=== PATIENT | female | born 1970 | race Caucasian/White ===

== ENCOUNTER → 2016-12-25 | Outpatient (CLI) | payer OTHER ==
[~2016-12-25] MED LIST: B-CO1CAP3; LEVO125T4 PO; MULT-506 PO; OMEG12006 PO; OXYC-57 PO; fiber PO
--- NOTE | 2016-12-25 13:23 | Discharge Instructions ---
Discharge Instructions Procedure Procedure Date: Dec 25, 2016. Reason for visit: Left Calcifications. Discharge Discharge Date: Dec 25, 2016. Discharge Diagnosis: status post breast biopsy Instructions Activity Recommendations: Additional Limitations (see below) Return to School/Work: no limitations Recommended Home Diet: No Limitations Provider Instructions: ACTIVITY RECOMMENDATIONS: * No lifting, pushing, pulling or exercising the affected side for three days. RETURN TO SCHOOL/WORK: * You may return to work/school after the procedure, but do not perform any strenuous activities for 24 to 48 hours. MEDICATIONS: * Tylenol (two 325 mg) every four to six hours if needed for mild pain (if not allergic to Tylenol). DIET: * Resume previous diet. SPECIAL CARE INSTRUCTIONS: * Keep biopsy site dry for 24 hours. May shower after 24 hours, but do not soak (bathe) incision. * May remove Tegaderm (plastic patch) tomorrow AFTER showering. * Leave the steri-strips on for one week. Allow the steri-strips to fall off by themselves. If not off after one week, you may remove them. You may place a Bandaid crosswise over the strips, if desired. * Apply ice 10 minutes on and 10 minutes off as needed. * Wear a bra at bedtime to sleep more comfortably for 2-3 days. * Your referring physician should have the results after approximately 5 to 7 business days. * Call for unusual bleeding, fever, drainage, etc or if you have any questions call during normal business hours or after hours call Dr Solis, . FOLLOW UP VISIT: Follow-up with Referring Physician as scheduled. Allergies Coded Allergies: No Known Allergies (Verified Allergy, Unknown, 12/08/05) Jazmin Domingo Recommendations: Call your doctor if: * Temperature above 101 degrees * Pain not relieved by pain medicine ordered * There is increased drainage or redness from any incision * You have any unanswered questions or concerns. Your Doctors Instructions noted above were prepared by provider Millicent Solis. Patient Signature Section: Patient Instructions Signature Page Vilma Magallon Patient (or Guardian) Signature/Date: I have read and understand the instructions given to me by my caregivers. Caregiver/RN/Doctor Signature/Date: The above-named patient and/or guardian has received patient instructions on this date. + Original Patient Signature Page (only) stays with chart. Please make copy for patient.
--- NOTE | 2016-12-25 15:21 | MAMMOGRAPHY REPORT ---
UNILATERAL LEFT DIGITAL DIAGNOSTIC MAMMOGRAM: 12/25/2016 CLINICAL HISTORY: Status post stereotactic biopsy of left upper outer quadrant calcifications. TECHNIQUE: Postprocedural left CC and ML views were obtained. COMPARISON: Comparison is made to exams dated: 12/07/2016 mammogram, 11/19/2016 mammogram - [facility], and 08/15/2009. BREAST COMPOSITION: The tissue of the left breast is heterogeneously dense, which may obscure small masses. FINDINGS: A new biopsy marker clip is seen in the left central breast status post stereotactic biop sy of left breast calcifications. A possible small 1.4 cm hematoma is noted at the biopsy site, bes t seen on the cc view. IMPRESSION: POST PROCEDURE IMAGING FOR MARKER PLACEMENT New biopsy marker clip status post stereotactic biopsy of left breast calcifications. Pathology res ults are pending. Pending benign pathology results in the left breast, would recommend follow-up right mammograms in 6 months to ensure stability of more loosely grouped and scattered microcalcifications throughout the entire right breast. Approximately 10% of breast cancers are not detected with mammography. A negative mammographic repor t should not delay biopsy if a clinically suggestive mass is present. Millicent Solis M.D. /:12/25/2016 13:42:31 Refinisher: Kimmie MCFARLAND(Marlene)(M), [facility] BI-RADS Code: Post Procedure Imaging For Marker Placement
--- NOTE | 2016-12-25 15:21 | MAMMOGRAPHY REPORT ---
STEREOTACTIC GUIDED BIOPSY LEFT BREAST: 12/25/2016 CLINICAL HISTORY: Left upper outer quadrant calcifications. PATIENT CONSENT: The procedure, risks, benefits, and alternatives of stereotactic biopsy with clip p gricelda were discussed with the patient, and verbal and written consent was obtained. A timeout wa s performed immediately prior to the procedure. PROCEDURE DESCRIPTION: With stereotactic guidance, aseptic technique, and lidocaine as a local anest hetic (1% lidocaine to anesthetize the skin and 1% lidocaine with epinephrine to anesthetize the donna per tissues), the area of concern was sampled multiple times with a 9-gauge vacuum-assisted biopsy n eedle ([employer] Eviva). The path of approach was craniocaudal. The specimen radiograph demonstrates c alcifications to be present in the samples. A metallic marker clip was placed at the biopsy site. This was confirmed on postprocedure mammograms. Direct pressure was applied at the biopsy site and hemostasis was readily achieved. The patient tolerated the procedure without complication. She was given wound care instructions. COMPARISON: Comparison is made to exams dated: 12/07/2016 mammogram, 11/19/2016 mammogram - [facility], and 08/15/2009. IMPRESSION: STEREOTACTIC GUIDED BIOPSY Stereotactic biopsy of indeterminate calcifications in the left upper outer quadrant, with clip plac empinky. The patient will receive pathology results from her referring physician. Millicent Solis M.D. /:12/25/2016 13:24:13 Filler Shaker: Kimmie ROONEY)(Steve), [facility]
== END | disposition home or self-care (01) ==
LOC: C.MAMM 12:19
PROVIDERS: ATTEND Obstetrics & Gynecology
DX: N60.12 Diffuse cystic mastopathy of left breast (principal); R92.0 Mammographic microcalcification found on diagnostic imaging of breast

== ENCOUNTER → 2017-02-16 | Outpatient (CLI) | payer OTHER ==
[2017-02-16 11:14] LABS: BASO % 0.3 %; BASO ABS # 0.02 K/uL (0-0.2); EOS % 2.1 %; HEMATOCRIT 32.4 % (37-47); IG% 0.4 %; LYMPH % 27.5 %; LYMPH ABS # 1.86 K/uL (1.2-3.4); MEAN CELL VOLUME 72.6 fL (80-100); MEAN CORPUSCULAR HGB CONC 30.2 g/dl (32-36); MEAN PLATELET VOLUME 9.1 fL (7.4-10.4); MONO % 8.7 %; PLATELET COUNT 329 K/uL (130-400); RED BLOOD COUNT 4.46 M/uL (4.2-5.4); WHITE BLOOD COUNT 6.77 K/uL (4.8-10.8)
[2017-02-16 11:30] LABS: BLOOD UREA NITROGEN 15 mg/dl (7-18); BUN/CREATININE RATIO 22.6 (10-20); CALCIUM 8.6 mg/dl (8.5-10.1); CARBON DIOXIDE 26 mmol/L (21-32); CHLORIDE 108 mmol/L (98-107); CREATININE 0.66 mg/dl (0.60-1.20); GLUCOSE 85 mg/dl (70-99); SODIUM 142 mmol/L (136-145)
[2017-02-16 11:34] LABS: ANISOCYTOSIS PRESENT; COMPLETE YES
[2017-02-16 11:42] LABS: CHOLESTEROL 171 mg/dl (0-200); CHOLESTEROL/HDL RATIO 3.6; FERRITIN 4.3 ng/ml (8.0-388.0); HDL CHOLESTEROL 48 mg/dl; LDL CHOLESTEROL CALCULATED 69 mg/dl; THYROID STIMULATING HORMONE 0.224 uIu/ml (0.300-4.500); TRIGLYCERIDES 270 mg/dl (0-150); VERY LOW DENSITY LIPOPROT CALC 54 mg/dl
== END | disposition home or self-care (01) ==
LOC: C.LABBC 08:04
PROVIDERS: ATTEND Internal Medicine
DX: E03.9 Hypothyroidism, unspecified (principal); E78.00 Pure hypercholesterolemia, unspecified; D50.9 Iron deficiency anemia, unspecified

== ENCOUNTER → 2017-03-01 | Outpatient (CLI) | payer OTHER ==
[~2017-03-01] MED LIST changes: -LEVO125T4 PO; +LEVO125T5 PO
== END | disposition home or self-care (01) ==
LOC: C.PATHSPEC 10:41
PROVIDERS: ATTEND Obstetrics & Gynecology
DX: N92.0 Excessive and frequent menstruation with regular cycle (principal)

== ENCOUNTER 2017-05-03 05:25 | Observation (INO) | payer OTHER ==
[2017-04-07 15:18] VITALS: Ht 165.1 cm; Wt 74.3 kg
--- NOTE | 2017-04-07 15:40 | PAT Medication Instructions ---
Service Date April 07, 2017. Current Home Medication List Levothyroxine Sodium (Levothyroxine Sodium), 1 TAB PO HS Multivitamin (Multivitamin), 1 TAB PO QPM [place]-3 Fatty Acids ([place] 3), 1 CAP PO QPM [fiber], 2 CAP PO HS Medication Instructions For Your Scheduled Surgery - Hold the following medications 2 weeks prior to surgery: [place]-3 Fatty Acids ([place] 3), 1 CAP PO QPM - Take the following medications as scheduled the night before surgery: Fiber, 2 CAP PO HS Multivitamin (Multivitamin), 1 TAB PO QPM Levothyroxine Sodium (Levothyroxine Sodium), 1 TAB PO HS If you have any questions please call us at [phone] or [phone] ( Reshma) or [phone]
[2017-04-07 16:13] LABS: BASO % 0.3 %; BASO ABS # 0.02 K/uL (0-0.2); EOS % 3.2 %; HEMATOCRIT 35.2 % (37-47); IG% 0.1 %; LYMPH % 40.4 %; LYMPH ABS # 3.16 K/uL (1.2-3.4); MEAN CELL VOLUME 80.4 fL (80-100); MEAN CORPUSCULAR HGB CONC 32.4 g/dl (32-36); MEAN PLATELET VOLUME 8.8 fL (7.4-10.4); MONO % 6.9 %; NEUT % 49.1 %; PLATELET COUNT 321 K/uL (130-400); RED BLOOD COUNT 4.38 M/uL (4.2-5.4); WHITE BLOOD COUNT 7.83 K/uL (4.8-10.8)
[2017-04-07 16:25] LABS: BUN/CREATININE RATIO 24.1 (10-20); CREATININE 0.64 mg/dl (0.60-1.20); POTASSIUM 4.1 mmol/L (3.5-5.1)
[2017-04-07 16:34] LABS: ANISOCYTOSIS PRESENT; COMPLETE YES
[~2017-05-03] VITALS: Ht 165.1 cm; Wt 74.3 kg
[2017-05-03] VITALS (8 sets, daily range): BP systolic 106–119; BP diastolic 58–66; PULSE 93–120; TEMP 36.3–36.9; O2SAT 98–99
[~2017-05-03 05:25] MED LIST changes: -B-CO1CAP3; -OXYC-57 PO
[2017-05-03] MEDS ORDERED: B-CO1CAP3 (05:55)
[2017-05-03] MEDS ORDERED: CEFAZOLIN 2000 MG/60 ML D5W 50 ML IV SCH (06:00)
[2017-05-03] MEDS ORDERED: LACTATED RINGER'S 1000ML 1,000 ML IV SCH (06:00)
[2017-05-03] MEDS ORDERED: PROPOFOL IV EMULSION 10 MG/ML 20 ML VIAL IV ONE (06:30)
[2017-05-03] MEDS ORDERED: LIDOCAINE HCL 2% 2 ML VIAL (20MG/ML) ONE (06:30)
[2017-05-03] MEDS ORDERED: MIDAZOLAM HCL 1 MG/ML 2ML VIAL ONE (06:30)
[2017-05-03] MEDS ORDERED: ROCURONIUM BROMIDE 10 MG/ML 5 ML VIAL ONE ×2 (06:30→09:23)
[2017-05-03] MEDS ORDERED: DEXAMETHASONE SOD INJ 4 MG/ML VIAL ONE (06:30)
[2017-05-03] MEDS ORDERED: ONDANSETRON INJ 2 MG/ML 2 ML VIAL ONE (06:30)
[2017-05-03] MEDS ORDERED: FENTANYL CITRATE INJ 50 MCG/1 ML 2 ML VIAL ONE ×2 (06:30→09:45)
[2017-05-03] MEDS ORDERED: BUPIVACAINE 0.5 % 5 MG/1 ML MPF 30ML VIAL ONE (07:01)
[2017-05-03] MEDS ORDERED: METHYLENE BLUE 0.5% 10 ML VIAL ONE (07:01)
--- NOTE | 2017-05-03 07:19 | History & Physical Bridge Note ---
H&P Re-Evaluation Bridge Note: I have examined the patient, reviewed the History & Physical and in the interval since the performance of the History & Physical I have noted the following changes of clinical significance: No changes noted
[2017-05-03] MEDS ORDERED: METOCLOPRAMIDE HCL INJ 5 MG/ML 2 ML VIAL ONE (07:43)
[2017-05-03] MEDS ORDERED: PROMETHAZINE HCL INJ 12.5 MG in SODIUM CHLORIDE 0.9% 50ML 50 ML IV PRN ×2 (08:00→10:30)
[2017-05-03] MEDS ORDERED: HYDROmorphone INJ 2 MG/ML SYR/VIAL IV PRN (08:00)
[2017-05-03] MEDS ORDERED: ATROPINE SULFATE 0.1 MG/ML 5ML SYR IV PRN (08:00)
[2017-05-03] MEDS ORDERED: KETOROLAC TROMETHAMINE 30 MG/ML VIAL IV. PRN (08:00)
[2017-05-03] MEDS ORDERED: HYDROmorphone INJ 2 MG/ML SYR/VIAL ONE (08:00)
[2017-05-03] MEDS ORDERED: ONDANSETRON INJ 2 MG/ML 2 ML VIAL IV PRN ×2 (08:00→10:30)
[2017-05-03] MEDS ORDERED: LABETALOL HCL IV 5 MG/ML 20ML IV PRN (08:00)
[2017-05-03] MEDS ORDERED: LABETALOL HCL IV 5 MG/ML 20ML IV ONE (08:47)
[2017-05-03] MEDS ORDERED: NEOSTIGMINE METHYLSULFATE 5 MG/5 ML SYR ONE (09:20)
[2017-05-03] MEDS ORDERED: GLYCOPYRROLATE INJ 0.2 MG/ML VIAL ONE (09:20)
--- NOTE | 2017-05-03 10:22 | [facility] Post Operative Brief Note ---
Immediate Operative Summary Operative Date May 03, 2017. Pre-Operative Diagnosis Heavy menses and uterine leiomyoma Post-Operative Diagnosis Same as pre-operative Procedure(s) Performed Robotic assisted total laparoscopic hysterectomy and cystoscopy. Surgeon Dr. Karen Root, [employer] Dist[employer] Operator Surgeon(s) None Estimated Blood Loss 10ml Findings Enlarged uterus with multiple fibroids. Ovaries/tubes with normal appearance, tubes adhered to ovaries bilaterally. Areas of old-appearing endometriosis scarring. Bladder appears normal with bilateral ureteral efflux. Specimens A. Uterus, cervix Drains villanueva, clear yellow to gravity Anesthesia general Complication(s) None Disposition Recovery Room / PACU
[2017-05-03] MEDS ORDERED: SIMETHICONE 80 MG CHEW PO PRN (10:30)
[2017-05-03] MEDS ORDERED: OXYCODONE/ACETAMINOPHEN 5-325 TAB PO PRN ×2 (10:30)
[2017-05-03] MEDS ORDERED: IBUPROFEN 600 MG TAB PO PRN (10:30)
--- NOTE | 2017-05-03 10:45 | Anesthesiology Progress Note ---
Anesthesia Post Op Note Date & Time May 03, 2017 at 10:45 Vital Signs Pain Intensity: 0 Vital Signs Past 12 Hours Date Time Temp Pulse Resp B/P (MAP) Pulse Ox O2 Delivery O2 Flow Rate FiO2 05/03/17 10:40 92 16 114/66 99 Nasal Cannula 2 05/03/17 10:30 95 16 114/64 99 Nasal Cannula 2 05/03/17 10:20 96 16 114/65 98 Nasal Cannula 2 05/03/17 10:11 36.1 109 16 122/68 99 Nasal Cannula 2 05/03/17 05:30 36.9 94 16 113/66 (82) 99 Room Air Notes Mental Status: alert / awake / arousable, participated in evaluation Pt Amnestic to Procedure: Yes Nausea / Vomiting: adequately controlled Pain: adequately controlled Airway Patency, RR, SpO2: stable & adequate BP & HR: stable & adequate Hydration State: stable & adequate Anesthetic Complications: no major complications apparent
[2017-05-03] MEDS: LACTATED RINGER'S 1000ML 1,000 ML IV SCH ×2 (11:00→14:00)
[2017-05-03] MEDS ORDERED: IV FLUIDS COMPLETED PRN (11:15)
--- NOTE | 2017-05-03 11:54 | OPERATIVE REPORT ---
DATE OF OPERATION: 05/03/2017 PREOPERATIVE DIAGNOSES: 1. Heavy menses. 2. Uterine leiomyoma. POSTOPERATIVE DIAGNOSES: Same. PROCEDURES: Robotic assisted total laparoscopic hysterectomy and cystoscopy. SURGEON: Karen Root DO. BED RUBBER: None. ESTIMATED BLOOD LOSS: 10 mL. FINDINGS: Enlarged uterus with multiple fibroids. Ovaries and tubes were normal in appearance. The tubes adhered to the ovaries bilaterally. Areas of old appearing endometriosis scarring in the pelvic peritoneum. Bladder appears normal with bilateral ureteral efflux. SPECIMENS: Uterus and cervix. DRAINS: Mace, clear yellow/green to gravity. ANESTHESIA: General. COMPLICATIONS: None. DISPOSITION: Stable and good to recovery room. INDICATIONS FOR THE PROCEDURE: The patient is a 46-year-old G2, P2 with a history of 1 and 1 vaginal delivery, undergoing laparoscopic hysterectomy for heavy menses. She has a known fibroid uterus with heavy periods and associated anemia. Ultrasound performed in March 2017 showed heterogeneous uterus with multiple masses. The patient elected to undergo a hysterectomy as heavy menses I believed to be caused by her fibroids. DESCRIPTION OF PROCEDURE: The patient was seen in the preoperative holding area where risks, benefits, and alternatives to surgery were reviewed. She elected to proceed with surgery. She had previously signed informed consent in the office under no duress. She was taken to the operating room, where general anesthesia was introduced and 2 grams of Ancef was infused prior to incision. A timeout was confirmed. The patient was prepared and draped in the usual sterile fashion with feet in Yellofin stirrups in the dorsal lithotomy position. A Mace catheter was placed and clear yellow urine was noted in the tube. A weighted speculum was placed in the vagina. Cervix was visualized and its anterior lip was grasped with a single tooth tenaculum. Bilateral stay sutures were placed at 3 and 9 o'clock in the cervix. The uterine manipulator medium size VCare was placed and sutured into place. Gloves were changed and attention was then turned to the abdomen, where the supraumbilical incision was created using the open Keren technique. The camera was inserted and intraabdominal placement was confirmed and the bilateral robotic ports were placed, arms 1, 2 and 3 as well as an nutrition assistant port. These were all placed under direct visualization. The pelvis was visualized. The patient was placed in Trendelenburg position and the bowel was swept out of the way with the blunt probe. The robot was docked and all instruments were inserted under direct visualization. The bilateral fallopian tubes were visualized and initially the plan was to remove them; however, these were significantly adherent to the bilateral ovaries, which appeared normal. Both tubes and ovaries appeared normal and therefore, the decision was made to forego salpingectomy due to risk of damage to the ovaries. Bilateral ureters were visualized. The bilateral uteroovarian ligaments , fallopian tubes and round ligaments were transected and cauterized. The broad ligament was skeletonized. The bladder flap was created and the uterine vessels were cauterized bilaterally and incised. Excellent hemostasis was noted. The vaginal cuff incision was made with hot scissors and the uterus was amputated from the vaginal cuff. The uterus was then delivered through the vagina. The cuff was inspected and bleeding was coagulated using the fenestrated bipolar forceps. The vaginal cuff was then reapproximated using V-Loc suture in a running stitch. Tisseel was applied to obtain excellent hemostasis. The attention was then turned to the bladder, where cystoscopy was performed and the bladder appeared intact with no intruding sutures. No blood in the bladder and bilateral ureters were observed to efflux methylene blue dye. The cystoscope was withdrawn. Mace catheter was replaced. Gloves were changed and attention was turned to the abdomen and the supraumbilical incision fascia was reapproximated with 0 Vicryl and all skin incisions were reapproximated using 4-0 Vicryl and Dermabond. The patient was awoken from anesthesia and taken to the recovery room in stable and good condition. I attest to the content of the Intraoperative Record and any orders documented therein. Any exceptions are noted below. ANGEL
[2017-05-03] MEDS ORDERED: OXYC-57 PO (13:52)
--- NOTE | 2017-05-03 13:54 | Discharge Instructions ---
Discharge Instructions Date of Service May 03, 2017. Admission Reason for Admission: Uterine Leiomyoma Discharge Discharge Diagnosis / Problem: s/p laparoscopic total hysterectomy Discharge Goals Goal(s): Routine recovery after surgery Activity Recommendations Activity Limitations: per Instructions/Follow-up section . Instructions / Follow-Up Instructions / Follow-Up ACTIVITY RECOMMENDATIONS: Activity: * During the first week at home, your activity should be similar to that done at the hospital prior to discharge. Your primary activity is in-house walking interspersed with rest periods. Preparing lunch for yourself is acceptable. You may go up and down stairs. Try to stay up progressively longer periods of time to help regain your strength more quickly. * During the second week at home, activities should include some meal preparation, walking to strengthen abdominal muscles and riding in a car. You may drive a car and make brief shopping trips at the end of the second week at home. * Lifting should not exceed 15-20 pounds during the first month after surgery. * Sexual intercourse can usually be resumed about 6 weeks after surgery depending on findings at your post-operative examinations. Bathing: * Showers or baths are permissible. Sitting in four to six inches of hot water (sitz bath) is often comforting after vaginal surgery and is permitted at any time. A sitz bath at bedtime can also assist in a better night's sleep. SPECIAL CARE INSTRUCTIONS: The major discomforts related to surgery have now passed and progressive improvement will occur. The tight uncomfortable feeling in the abdominal, pelvic and back area will gradually fade away. Fatigue may take the longest to disappear; your energy level may take several weeks to return to normal. At times you may become frustrated or impatient over not feeling as well or doing as much as you'd like , but this is a normal reaction to surgery and will pass with time. Vaginal Discharge: * Odorous, blood-tinged or brownish discharge may be present for one to three weeks after surgery. * Pads should be used and not tampons. * Stitches may be passed vaginally. * Bleeding may be somewhat increased approximately two weeks after surgery, which is related to the stitches dissolving. * If bleeding becomes free flowing, notify our office at . Bowel Care: * Constipation after surgery is very common. Foods that promote bowel activity (bran, fruit, prune juice) should be included in your diet. * A capsule, DIALOSE-PLUS, can be purchased without a prescription and can be taken daily (one or two capsules) to assist in promoting bowel activity. * If you have had vaginal surgery involving your rectum, we will discuss this when discharged from the hospital. Catheter or "CYSTO-CATH": * Approximately 80% of "bladder repair" patients will require a catheter at home until the swelling recedes. * Some patients require days to weeks before adequate bladder emptying will resume. * In general, after each time you urinate, un-clamp the catheter again. Measure the amount in the bag. When this is consistently below 100cc, call the office to make an appointment to have the catheter removed. Temperature: * Any fever above 100.4 degrees F should be reported to our office at [phone]. FOLLOW-UP: Post-Operative Appointments: * Individual instructions will have been given about the timing of your first examination, but this is usually at the end of the second week home. * You will need to call the office at soon after discharge to make the appointment for your post-op check-up if it has not already been scheduled. * Additional information regarding activity, sexual intercourse and when to return to work will be given at this appointment. WE WISH YOU A SPEEDY RECOVERY! Current Hospital Diet Patient's current hospital diet: Clear Liquid Diet Discharge Diet Recommended Diet: Regular Diet Procedures Procedures Performed: Robotic assisted total laparoscopic hysterectomy and cystoscopy. Pending Studies Studies pending at discharge: no Laboratory Results Lipid Panel Test 02/16/17 08:10 Range/Units Triglycerides Level 270 H 0-150 mg/dl Cholesterol Level 171 0-200 mg/dl HDL Cholesterol 48 mg/dl Cholesterol/HDL Ratio 3.6 LDL Cholesterol, Calculated 69 mg/dl Medical Emergencies . Who to Call and When: Medical Emergencies: If at any time you feel your situation is an emergency, please call 911 immediately. . Non-Emergent Contact Non-Emergency issues call your: Primary Care Provider, Director Hedis . . "Provider Documentation" section prepared by Karen Root. . VTE Core Measure Inpt VTE Proph given/why not?: SCD's
--- NOTE | 2017-05-03 20:37 | DISCHARGE SUMMARY ---
DATE OF SURGERY: 05/03/2017. PROCEDURES PERFORMED: 1. Robotic assisted total laparoscopic hysterectomy. 2. Cystoscopy. COURSE OF STAY: The patient was admitted for observation following the above noted procedure. She recovered well and was discharged to home the same day. INFECTION: None. DISPOSITION ON DISCHARGE: Stable and good to home. DIET: Regular. ACTIVITY: Pelvic rest, no heavy lifting. No driving and no tub bath. MEDICATIONS: Prescription for Percocet and instructions to take p.o. Motrin and Colace over the counter. Follow up in 2 weeks in the office.
== END 2017-05-03 18:30 | disposition home or self-care (01) ==
LOC: C.ACU 05:25 → C.OBG 05:45 → UNDOADMOB 05:45 → ENRESERV 10:46
PROVIDERS: ADMIT Obstetrics & Gynecology; ATTEND Obstetrics & Gynecology
DX: N92.0 Excessive and frequent menstruation with regular cycle (principal); D25.9 Leiomyoma of uterus, unspecified; Z68.27 Body mass index [BMI] 27.0-27.9, adult; Z90.49 Acquired absence of other specified parts of digestive tract; E78.00 Pure hypercholesterolemia, unspecified; Z82.49 Family history of ischemic heart disease and other diseases of the circulatory system; E03.9 Hypothyroidism, unspecified
CPT/HCPCS: 58570; S2900

== ENCOUNTER → 2017-05-11 | Outpatient (CLI) | payer OTHER ==
[~2017-05-11] MED LIST changes: +B-CO1CAP3; +OXYC-57 PO
[2017-05-11 11:38] LABS: THYROID STIMULATING HORMONE 2.86 uIu/ml (0.300-4.500)
== END | disposition home or self-care (01) ==
LOC: C.LABBC 07:21
PROVIDERS: ATTEND Internal Medicine
DX: E03.9 Hypothyroidism, unspecified (principal)

== ENCOUNTER → 2017-06-03 | Outpatient (CLI) | payer OTHER ==
[~2017-06-03] MED LIST changes: +LEVO125T4 PO; -LEVO125T5 PO; -OXYC-57 PO
[2017-06-03 10:54] LABS: HEMATOCRIT 39.1 % (37-47); MEAN CELL VOLUME 82.5 fL (80-100); MEAN CORPUSCULAR HEMOGLOBIN 26.2 pg (25-34); MEAN CORPUSCULAR HGB CONC 31.7 g/dl (32-36); PLATELET COUNT 273 K/uL (130-400); RED BLOOD COUNT 4.74 M/uL (4.2-5.4); WHITE BLOOD COUNT 6.28 K/uL (4.8-10.8)
[2017-06-03 11:13] LABS: FERRITIN 11.8 ng/ml (8.0-388.0)
== END | disposition home or self-care (01) ==
LOC: C.LABBC 08:22
PROVIDERS: ATTEND Internal Medicine
DX: E78.00 Pure hypercholesterolemia, unspecified (principal); D50.9 Iron deficiency anemia, unspecified

== ENCOUNTER → 2017-06-24 | Outpatient (CLI) | payer OTHER ==
--- NOTE | 2017-06-24 14:55 | MAMMOGRAPHY REPORT ---
UNILATERAL RIGHT DIGITAL DIAGNOSTIC MAMMOGRAM TOMOSYNTHESIS WITH CAD: 06/24/2017 CLINICAL HISTORY: History of benign left breast stereotactic biopsy December 2016, here for short int erval follow-up of right breast calcifications. The patient reports no current complaints. TECHNIQUE: Breast tomosynthesis in addition to standard 2D mammography was performed. Current study was also evaluated with a Computer Aided Detection (CAD) system. Right CC and MLO 2-D and tomosynthe sis images and spot magnification right cc and ML views were obtained. COMPARISON: Comparison is made to exams dated: 12/25/2016 stereotactic biopsy, 12/25/2016 mammogram, 11/22 mammogram, 11/19/2016 mammogram - [facility], and 08/15/2009. BREAST COMPOSITION: The tissue of the right breast is heterogeneously dense, which may obscure small masses. FINDINGS: Spot magnification views of the right breast again demonstrate numerous scattered and loos katy grouped punctate and amorphous calcifications throughout the right breast as well as several coar se benign rim calcifications. The calcifications are stable on spot magnification views dated . Similar-appearing calcifications were seen in the left breast which were biopsied and yielded b enign pathology. Findings are considered benign and likely represent fibrocystic changes. The remai nder of the right breast is stable compared to prior exams, without suspicious masses, calcifications , or areas of architectural distortion noted. IMPRESSION: ACR BI-RADS CATEGORY 2: BENIGN Scattered and loosely grouped calcifications in the right breast are stable compared to the November 23 exam and considered benign. There is no mammographic evidence of malignancy in the right breast. Return to annual mammogram screening schedule is recommended, due October 2017. The patient has be en verbally notified of the results. Approximately 10% of breast cancers are not detected with mammography. A negative mammographic report should not delay biopsy if a clinically suggestive mass is present. Millicent Solis M.D. /:06/24/2017 14:34:38 Tour Agent: Gloria ROONEY)(Steve), [facility] letter sent: Normal 1/2 BI-RADS Code: ACR BI-RADS Category 2: Benign
== END | disposition home or self-care (01) ==
LOC: C.MAMM 14:03
PROVIDERS: ATTEND Obstetrics & Gynecology
DX: R92.1 Mammographic calcification found on diagnostic imaging of breast (principal)

== ENCOUNTER → 2017-09-10 | Outpatient (CLI) | payer OTHER ==
[2017-09-10 11:22] LABS: CHOLESTEROL/HDL RATIO 5.4; FERRITIN 10.5 ng/ml (8.0-388.0)
== END | disposition home or self-care (01) ==
LOC: C.LABBC 08:44
PROVIDERS: ATTEND Internal Medicine
DX: D50.9 Iron deficiency anemia, unspecified (principal); E78.00 Pure hypercholesterolemia, unspecified

== ENCOUNTER → 2017-10-28 | Outpatient (CLI) | payer OTHER ==
[~2017-10-28] MED LIST changes: -LEVO125T4 PO; +LEVO125T5 PO
[2017-10-28 18:25] LABS: URINE BILIRUBIN NEG (NEG); URINE COLOR YELLOW; URINE NITRITE NEG (NEG); URINE SPECIFIC GRAVITY 1.026 (1.000-1.030); UROBILINOGEN NEG (NEG)
[2017-10-28 18:29] LABS: MANUAL MICROSCOPIC REQUIRED? NO; REVIEW REQ? NO
== END | disposition home or self-care (01) ==
LOC: C.LABSPEC 17:49
PROVIDERS: ATTEND Physician Assistant
DX: R39.9 Unspecified symptoms and signs involving the genitourinary system (principal); L29.8 Other pruritus

== ENCOUNTER → 2017-11-19 | Outpatient (CLI) | payer OTHER ==
[~2017-11-19] MED LIST changes: -B-CO1CAP3; +B-CO1CAP3 PO; +HYDR-5688 PO; +NUTRTAB40 PO; +OXYC-57 PO; +PSYL0.524 PO
[2017-11-19 11:21] LABS: ALT/SGPT 33 U/L (12-78); AST/SGOT 20 U/L (15-37); BLOOD UREA NITROGEN 15 mg/dl (7-18); CALCIUM 8.7 mg/dl (8.5-10.1); CARBON DIOXIDE 27 mmol/L (21-32); CREATININE 0.69 mg/dl (0.60-1.20); GLUCOSE 84 mg/dl (70-99); POTASSIUM 3.6 mmol/L (3.5-5.1); SODIUM 137 mmol/L (136-145)
[2017-11-19 11:27] LABS: BASO % 0.3 %; BASO ABS # 0.02 K/uL (0-0.2); EOS % 2.5 %; EOS ABS # 0.16 K/uL (0-0.5); HEMATOCRIT 39.2 % (37-47); IG# 0.01 K/uL (0.00-0.02); LYMPH % 42.3 %; LYMPH ABS # 2.67 K/uL (1.2-3.4); MEAN CELL VOLUME 83.6 fL (80-100); MEAN CORPUSCULAR HEMOGLOBIN 27.7 pg (25-34); MEAN CORPUSCULAR HGB CONC 33.2 g/dl (32-36); MEAN PLATELET VOLUME 9.1 fL (7.4-10.4); MONO ABS # 0.44 K/uL (0.11-0.59); NEUT % 47.7 %; NEUT ABS # 3.01 K/uL (1.4-6.5); PLATELET COUNT 312 K/uL (130-400); RED CELL DISTRIBUTION WIDTH CV 14.1 % (11.5-14.5); RED CELL DISTRIBUTION WIDTH SD 43.4 fL (36.4-46.3); WHITE BLOOD COUNT 6.31 K/uL (4.8-10.8)
[2017-11-19 11:29] LABS: CHOLESTEROL 226 mg/dl (0-200); LDL CHOLESTEROL CALCULATED 117 mg/dl; TRANSFERRIN 335 mg/dl (200-360)
== END | disposition home or self-care (01) ==
LOC: C.LABBC 08:29
PROVIDERS: ATTEND Internal Medicine
DX: E03.9 Hypothyroidism, unspecified (principal); D50.9 Iron deficiency anemia, unspecified; E78.00 Pure hypercholesterolemia, unspecified

== ENCOUNTER → 2017-11-24 | Outpatient (CLI) | payer OTHER ==
--- NOTE | 2017-11-25 12:45 | MAMMOGRAPHY REPORT ---
BILATERAL DIGITAL SCREENING MAMMOGRAM TOMOSYNTHESIS WITH CAD: 11/24/2017 CLINICAL HISTORY: Routine screening. Patient has no complaints. TECHNIQUE: Breast tomosynthesis in addition to standard 2D mammography was performed. Current study was also evaluated with a Computer Aided Detection (CAD) system. COMPARISON: Comparison is made to exams dated: 06/24/2017 mammogram, 12/25/2016 stereotactic biopsy, 12/25 mammogram, 12/07/2016 mammogram, 11/19/2016 mammogram - [facility], and 009. BREAST COMPOSITION: The tissue of both breasts is heterogeneously dense, which may obscure small mas ses. FINDINGS: There is a stable biopsy marker clip in the central left breast. Benign round microcalcifi cations in the left breast and rim calcifications throughout the right breast. No new suspicious mas s, architectural distortion or cluster of microcalcifications is seen. IMPRESSION: ACR BI-RADS CATEGORY 1: NEGATIVE There is no mammographic evidence of malignancy. A 1 year screening mammogram is recommended. The pa tient will receive written notification of the results. Approximately 10% of breast cancers are not detected with mammography. A negative mammographic report should not delay biopsy if a clinically suggestive mass is present. Neli Lock M.D. ay/:11/24/2017 17:09:55 Medical Secretary: Kimmie MCFARLAND(Marlene)(M), [facility] letter sent: Normal /2 BI-RADS Code: ACR BI-RADS Category 1: Negative
== END | disposition home or self-care (01) ==
LOC: C.MAMM 16:22
PROVIDERS: ATTEND Obstetrics & Gynecology
DX: Z12.31 Encounter for screening mammogram for malignant neoplasm of breast (principal)

== ENCOUNTER 2017-12-03 07:04 | Emergency (ER) | payer OTHER ==
[~2017-12-03] VITALS: Ht 165.1 cm; Wt 72.9 kg
[~2017-12-03 07:04] MED LIST changes: -HYDR-5688 PO; -NUTRTAB40 PO; -OXYC-57 PO; -PSYL0.524 PO
[2017-12-03 07:09] VITALS: TEMP 36.5; Ht 165.1 cm; Wt 72.9 kg
[2017-12-03] MEDS ORDERED: ONDANSETRON INJ 2 MG/ML 2 ML VIAL IV STA (07:37)
[2017-12-03] MEDS ORDERED: MoRPHine SULFATE 10 MG/ML CARP/VIAL IV STA (07:37)
[2017-12-03] MEDS ORDERED: NUTRTAB40 PO (07:41)
[2017-12-03] MEDS ORDERED: PSYL0.524 PO (07:41)
[2017-12-03] MEDS ORDERED: OPTIRAY 320 IV PRN (07:45)
[2017-12-03 07:48] LABS: BASO % 0.2 %; BASO ABS # 0.02 K/uL (0-0.2); EOS % 1.6 %; EOS ABS # 0.13 K/uL (0-0.5); HEMATOCRIT 41.1 % (37-47); IG# 0.03 K/uL (0.00-0.02); LYMPH % 30.3 %; LYMPH ABS # 2.43 K/uL (1.2-3.4); MEAN CELL VOLUME 82.9 fL (80-100); MEAN CORPUSCULAR HEMOGLOBIN 28.2 pg (25-34); MEAN CORPUSCULAR HGB CONC 34.1 g/dl (32-36); MEAN PLATELET VOLUME 9.2 fL (7.4-10.4); MONO % 5.4 %; MONO ABS # 0.43 K/uL (0.11-0.59); NEUT % 62.1 %; NEUT ABS # 4.97 K/uL (1.4-6.5); PLATELET COUNT 303 K/uL (130-400); RED CELL DISTRIBUTION WIDTH CV 14.4 % (11.5-14.5); RED CELL DISTRIBUTION WIDTH SD 43.7 fL (36.4-46.3); WHITE BLOOD COUNT 8.01 K/uL (4.8-10.8)
[2017-12-03 07:56] LABS: ALT/SGPT 30 U/L (12-78); BLOOD UREA NITROGEN 15 mg/dl (7-18); CALCIUM 9.6 mg/dl (8.5-10.1); CARBON DIOXIDE 22 mmol/L (21-32); CREATININE 0.62 mg/dl (0.60-1.20); GLUCOSE 100 mg/dl (70-99); LIPASE 140 U/L (73-393); POTASSIUM 3.9 mmol/L (3.5-5.1); SODIUM 137 mmol/L (136-145)
[2017-12-03 07:59] LABS: ALKALINE PHOSPHATASE 82 U/L (45-117); AST/SGOT 19 U/L (15-37); TOTAL PROTEIN 7.7 gm/dl (6.4-8.2)
--- NOTE | 2017-12-03 09:58 | DIAGNOSTIC IMAGING REPORT ---
CT SCAN OF THE ABDOMEN AND PELVIS WITH IV CONTRAST CLINICAL HISTORY: Left lower quadrant abdominal pain. COMPARISON STUDY: Abdominal CT dated 10/26/2008. TECHNIQUE: Following the IV administration of 93 cc of Optiray 320, CT scan of the abdomen and pelvis is performed from the lung bases to the proximal femora. Images are reviewed in the axial, sagittal, and coronal planes. IV contrast was administered without complication. A dose lowering technique was utilized adhering to the principles of ALARA. CT DOSE: 633.10 mGycm FINDINGS: Lung bases: The heart is normal in size and without pericardial effusion. The lung bases are clear. Liver: The contrast-enhanced liver is normal in size, contour, and attenuation. There is no intrahepatic biliary ductal dilatation. The hepatic veins and portal veins are patent. Gallbladder: Surgically absent noting clips in the gallbladder fossa. Spleen: Normal in size and attenuation. Pancreas: Unremarkable. Adrenal glands: Unremarkable. Kidneys: The contrast enhanced kidneys are normal in size and without hydronephrosis. The kidneys enhance symmetrically. Abdominal vasculature: The abdominal aorta is normal in course and caliber. Bowel: There is moderate to severe constipation. No bowel obstruction is seen. The appendix is well-visualized and normal. Peritoneum: Trace perihepatic fluid is identified. There is no intraperitoneal free air. There is a small fat-containing umbilical hernia. Lymphadenopathy: None. Pelvic viscera: The bladder is normal as visualized. The uterus is surgically absent. The left ovary appears enlarged, measuring 6.2 x 4.7 cm. Numerous follicles are suggested. An involuting follicle on the left measures 1.9 cm. There are several right ovarian follicles also identified. Skeletal structures: No lytic or blastic lesions are seen. Mild sclerotic change is seen in the sacroiliac joints. IMPRESSION: 1. The left ovary appears enlarged and heterogeneous an contains numerous follicles. Correlation with a pelvic ultrasound is recommended to exclude ovarian torsion. 2. There is a small volume of pelvic free fluid as well as trace perihepatic fluid. This may be related to a ruptured ovarian follicle/cyst. 3. Moderate to severe constipation. No bowel obstruction is seen. 4. Additional findings as above. Electronically signed by: Yan Hernadez M.D. 12/03/2017 9:57 AM Dictated Date/Time: 12/03/2017 9:52 AM
--- NOTE | 2017-12-03 12:06 | DIAGNOSTIC IMAGING REPORT ---
PELVIC ULTRASOUND CLINICAL HISTORY: Lower abdominal pain. Abnormal CT scan. COMPARISON STUDY: CT of the abdomen and pelvis May 03, 2018. TECHNIQUE: Transabdominal and transvaginal sonography of the pelvis was performed. FINDINGS: The uterus is surgically absent. The right ovary measures 4.2 x 2.8 x 2.2 cm and contains a complex 2.5 cm lesion. There is color flow within each ovary. The left ovary measures 4.1 x 2.9 x 3.1 cm. There is mild asymmetric enlargement of the left ovary which is echogenic. An adjacent fluid-filled tubular structure represents a dilated fallopian tube. A small amount of fluid within the pelvis is noted. IMPRESSION: 1. Findings consistent with a left-sided hydrosalpinx. 2. Mild asymmetric enlargement of the left ovary which is echogenic. Color flow identified within the left ovary. Although not highly suspicious, left ovarian torsion could have this imaging appearance and therefore gynecologic consultation is recommended if persistent pain. 3. Complex 2.5 cm right ovarian lesion. This may reflect a hemorrhagic/corpus luteal cyst. A follow-up pelvic ultrasound in 6 weeks to ensure resolution is recommended. 4. Small amount of fluid within the pelvis. Electronically signed by: Dharmesh Soto M.D. 12/03/2017 12:04 PM Dictated Date/Time: 12/03/2017 11:42 AM
[2017-12-03 13:00] VITALS: BP 108/62; PULSE 93; O2SAT 97
[2017-12-03] MEDS ORDERED: HYDR-5688 PO (13:09)
--- NOTE | 2017-12-03 13:10 | EMERGENCY ROOM VISIT NOTE ---
History First contact with patient: 07:13 Chief Complaint: ABDOMINAL PAIN Stated Complaint: LFT LWR ABDOMINAL PAIN - SHARP Nursing Triage Summary: LLQ dull ache pain for 2 days. Pain woke patient up at 5 AM today, sharp. Nausea. History of Present Illness The patient is a 47 year old female who presents to the Emergency Room with complaints of left lower abdominal pain. The patient states she has had dull achy pain in the left lower quadrant for the past 2 days today she woke up at 5 AM with a sharp pain in the same area. She states it goes from a 6 out of 10 to a 10 out of 10. The patient took 2 ibuprofen which slightly decreased the pain. The patient admits to nausea but denies any vomiting. The patient denies any diarrhea or change in bowel habits. The patient does have irritable bowel syndrome but this feels different. The patient denies any urinary symptoms of frequency, urgency or dysuria. The patient denies any chest pain or shortness of breath. The patient states she's had a cholecystectomy and hysterectomy but her ovaries still remaining. The patient never had a colonoscopy. Review of Systems 10 system review was performed and was negative unless stated otherwise history of present illness. Past Medical/Surgical History Medical Problems: (1) Uterine fibroid Hysterectomy Cholecystectomy Social History Smoking Status: Never Smoker Marital Status: Housing Status: lives with family Occupation Status: employed Current/Historical Medications Scheduled B-Complex Vitamins (B Complex), 1 TAB PO HS Levothyroxine Sodium (Levothyroxine Sodium), 125 MCG PO HS Multivitamin (Multivitamin), 1 TAB PO QPM Nutritional Supplements (Estroven), 1 TAB PO HS Psyllium (Metamucil), 1.04 GM PO HS Physical Exam Vital Signs Date Time Temp Pulse Resp B/P (MAP) Pulse Ox O2 Delivery O2 Flow Rate FiO2 12/03/17 13:00 93 17 108/62 97 Room Air 12/03/17 10:00 86 17 107/63 97 Room Air 12/03/17 08:25 90 17 140/76 97 Room Air 12/03/17 07:52 88 17 120/72 99 Room Air 12/03/17 07:09 36.5 100 20 125/74 99 Room Air Physical Exam GENERAL: 47-year-old white female appears uncomfortable secondary to abdominal pain. MENTAL Status: Patient is alert and oriented 3. MOUTH: Mucosa is moist NECK: Supple, no lymphadenopathy noted. No carotid bruits noted. LUNGS: Clear auscultation without wheezes rales or rhonchi. CARDIAC: Regular rate and rhythm without murmur. Pulses is full and equal throughout. BACK: No CVA tenderness noted. ABDOMEN: Positive bowel sounds all 4 quadrants. Soft, patient has mild tenderness palpation in the right upper quadrant and moderate tenderness in the left lower quadrant otherwise nontender to palpation without organomegaly or masses. EXTREMITIES: No cyanosis or edema noted. Medical Decision & Procedures ER Provider Diagnostic Interpretation: PELVIC ULTRASOUND CLINICAL HISTORY: Lower abdominal pain. Abnormal CT scan. COMPARISON STUDY: CT of the abdomen and pelvis May 03, 2018. TECHNIQUE: Transabdominal and transvaginal sonography of the pelvis was performed. FINDINGS: The uterus is surgically absent. The right ovary measures 4.2 x 2.8 x 2.2 cm and contains a complex 2.5 cm lesion. There is color flow within each ovary. The left ovary measures 4.1 x 2.9 x 3.1 cm. There is mild asymmetric enlargement of the left ovary which is echogenic. An adjacent fluid-filled tubular structure represents a dilated fallopian tube. A small amount of fluid within the pelvis is noted. IMPRESSION: 1. Findings consistent with a left-sided hydrosalpinx. 2. Mild asymmetric enlargement of the left ovary which is echogenic. Color flow identified within the left ovary. Although not highly suspicious, left ovarian torsion could have this imaging appearance and therefore gynecologic consultation is recommended if persistent pain. 3. Complex 2.5 cm right ovarian lesion. This may reflect a hemorrhagic/corpus luteal cyst. A follow-up pelvic ultrasound in 6 weeks to ensure resolution is recommended. 4. Small amount of fluid within the pelvis. Electronically signed by: Dharmesh Soto M.D. 12/03/2017 12:04 PM Dictated Date/Time: 12/03/2017 11:[address] SCAN OF THE ABDOMEN AND PELVIS WITH IV CONTRAST CLINICAL HISTORY: Left lower quadrant abdominal pain. COMPARISON STUDY: Abdominal CT dated 10/26/2008. TECHNIQUE: Following the IV administration of 93 cc of Optiray 320, CT scan of the abdomen and pelvis is performed from the lung bases to the proximal femora. Images are reviewed in the axial, sagittal, and coronal planes. IV contrast was administered without complication. A dose lowering technique was utilized adhering to the principles of ALARA. CT DOSE: 633.10 mGycm FINDINGS: Lung bases: The heart is normal in size and without pericardial effusion. The lung bases are clear. Liver: The contrast-enhanced liver is normal in size, contour, and attenuation. There is no intrahepatic biliary ductal dilatation. The hepatic veins and portal veins are patent. Gallbladder: Surgically absent noting clips in the gallbladder fossa. Spleen: Normal in size and attenuation. Pancreas: Unremarkable. Adrenal glands: Unremarkable. Kidneys: The contrast enhanced kidneys are normal in size and without hydronephrosis. The kidneys enhance symmetrically. Abdominal vasculature: The abdominal aorta is normal in course and caliber. Bowel: There is moderate to severe constipation. No bowel obstruction is seen. The appendix is well-visualized and normal. Peritoneum: Trace perihepatic fluid is identified. There is no intraperitoneal free air. There is a small fat-containing umbilical hernia. Lymphadenopathy: None. Pelvic viscera: The bladder is normal as visualized. The uterus is surgically absent. The left ovary appears enlarged, measuring 6.2 x 4.7 cm. Numerous follicles are suggested. An involuting follicle on the left measures 1.9 cm. There are several right ovarian follicles also identified. Skeletal structures: No lytic or blastic lesions are seen. Mild sclerotic change is seen in the sacroiliac joints. IMPRESSION: 1. The left ovary appears enlarged and heterogeneous an contains numerous follicles. Correlation with a pelvic ultrasound is recommended to exclude ovarian torsion. 2. There is a small volume of pelvic free fluid as well as trace perihepatic fluid. This may be related to a ruptured ovarian follicle/cyst. 3. Moderate to severe constipation. No bowel obstruction is seen. 4. Additional findings as above. Electronically signed by: Yan Hernadez M.D. 12/03/2017 9:57 AM Dictated Date/Time: 12/03/2017 9:52 AM Laboratory Results 12/03/17 07:20 Red Blood Count 4.96, Mean Corpuscular Volume 82.9, Mean Corpuscular Hemoglobin 28.2, Mean Corpuscular Hemoglobin Concent 34.1, Mean Platelet Volume 9.2, Neutrophils (%) (Auto) 62.1, Lymphocytes (%) (Auto) 30.3, Monocytes (%) (Auto) 5.4, Eosinophils (%) (Auto) 1.6, Basophils (%) (Auto) 0.2, Neutrophils # (Auto) 4.97, Lymphocytes # (Auto) 2.43, Monocytes # (Auto) 0.43, Eosinophils # (Auto) 0.13, Basophils # (Auto) 0.02 12/03/17 07:20 Test 12/03/17 07:20 White Blood Count 8.01 K/uL (4.8-10.8) Red Blood Count 4.96 M/uL (4.2-5.4) Hemoglobin 14.0 g/dL (12.0-16.0) Hematocrit 41.1 % (37-47) Mean Corpuscular Volume 82.9 fL (80-100) Mean Corpuscular Hemoglobin 28.2 pg (25-34) Mean Corpuscular Hemoglobin Concent 34.1 g/dl (32-36) Platelet Count 303 K/uL (130-400) Mean Platelet Volume 9.2 fL (7.4-10.4) Neutrophils (%) (Auto) 62.1 % Lymphocytes (%) (Auto) 30.3 % Monocytes (%) (Auto) 5.4 % Eosinophils (%) (Auto) 1.6 % Basophils (%) (Auto) 0.2 % Neutrophils # (Auto) 4.97 K/uL (1.4-6.5) Lymphocytes # (Auto) 2.43 K/uL (1.2-3.4) Monocytes # (Auto) 0.43 K/uL (0.11-0.59) Eosinophils # (Auto) 0.13 K/uL (0-0.5) Basophils # (Auto) 0.02 K/uL (0-0.2) RDW Standard Deviation 43.7 fL (36.4-46.3) RDW Coefficient of Variation 14.4 % (11.5-14.5) Immature Granulocyte % (Auto) 0.4 % Immature Granulocyte # (Auto) 0.03 K/uL (0.00-0.02) Anion Gap 9.0 mmol/L (3-11) Est Creatinine Clear Calc Drug Dose 109.8 ml/min Estimated GFR () 122.7 Estimated GFR (Non- 105.9 BUN/Creatinine Ratio 23.5 (10-20) Calcium Level 9.6 mg/dl (8.5-10.1) Total Bilirubin 0.3 mg/dl (0.2-1) Direct Bilirubin < 0.1 mg/dl (0-0.2) Aspartate Amino Transf (AST/SGOT) 19 U/L (15-37) Alanine Aminotransferase (ALT/SGPT) 30 U/L (12-78) Alkaline Phosphatase 82 U/L (45-117) Total Protein 7.7 gm/dl (6.4-8.2) Albumin 4.0 gm/dl (3.4-5.0) Lipase 140 U/L (73-393) Medications Administered Medications (Trade) Dose Ordered Sig/Shaun Route Start Time Stop Time Status Last Admin Dose Admin Morphine Sulfate (MoRPHine SULFATE INJ) 6 mg NOW STAT IV 12/03/17 07:37 12/03/17 07:39 DC 12/03/17 07:51 6 MG Ondansetron HCl (Zofran Inj) 4 mg NOW STAT IV 12/03/17 07:37 12/03/17 07:39 DC 12/03/17 07:51 4 MG ED Course The patient was evaluated. IV access was obtained. CBC and differential, renal profile, LFTs and lipase levels were ordered. Urinalysis was ordered. The patient was given morphine 6 mg IV and Zofran 4 mg IV push for nausea. Labs are reviewed and were unremarkable. CT of the abdomen and pelvis with IV and oral contrast was ordered and interpreted as above with possible left ovarian torsion and a ultrasound was recommended. Ultrasound of the pelvis was interpreted by the radiologist as above with small possibility of ovarian torsion. The patient was reevaluated on several occasions and her pain was now down to a 3 out of 10 and was tolerable. I consulted Dr. Lin who stated she did not feel that this was ovarian torsion based on the ultrasound report. She felt this was most likely either pain with observation for a recent ruptured cyst. She recommended if the patient has continued pain to follow-up in their office. The patient was informed treatment plan and was in agreement. The patient was discharged home in stable condition. Medical Decision Differential diagnosis include diverticulitis, pyelonephritis, ureteral calculi , ovarian cyst, ovarian torsion Impression Primary Impression: Abdominal pain, acute, left lower quadrant Departure Information Dispostion Home / Self-Care Condition GOOD Prescriptions Hydrocodone/Acetaminophen 5MG/325MG ([place] 5MG/325MG) Tab 1-2 TABLET PO Q6 Y for Pain, #14 TAB For Initial Treatment Prov: Violeta Junior PA-C 12/03/17 Referrals Pro,Devyn Hyde M.D. (PCP) Karen Root D.O. Forms Call Back Authorization, HOME CARE DOCUMENTATION FORM, IMPORTANT VISIT INFORMATION Patient Instructions Abdominal Pain - [facility], [facility], [facility] Additional Instructions Ibuprofen 600 mg every 6 hours with food for pain. Take [place] as needed for more severe pain. Do not drive while taking the [place]. If symptoms persist recommend follow-up with [employer] [employer] for further evaluation.
== END 2017-12-03 13:38 | disposition home or self-care (01) ==
LOC: C.EDB 07:04
DX: R10.32 Left lower quadrant pain (principal)

== ENCOUNTER 2017-12-06 09:47 | Observation (INO) | payer OTHER ==
[~2017-12-06] VITALS: Ht 162.6 cm; Wt 75.6 kg
[~2017-12-06 09:47] MED LIST changes: +HYDR-5688 PO; +NUTRTAB40 PO; -OMEG12006 PO; +PSYL0.524 PO; -fiber PO
[2017-12-06] MEDS ORDERED: KETOROLAC TROMETHAMINE 30 MG/ML VIAL IV STA (10:17)
[2017-12-06] MEDS ORDERED: ACETAMINOPHEN 500 MG TAB PO STA (10:17)
[2017-12-06] MEDS ORDERED: ONDANSETRON INJ 2 MG/ML 2 ML VIAL IV STA (10:17)
[2017-12-06] MEDS ORDERED: MoRPHine SULFATE 4 MG/ML 1 ML CARP\\VIAL IV STA (10:17)
--- NOTE | 2017-12-06 10:37 | EMERGENCY ROOM VISIT NOTE ---
History Report prepared by Rakan: Bubba Sanchez Under the Supervision of: Dr. Trace Liang M.D. First contact with patient: 09:49 Chief Complaint: SYNCOPE Stated Complaint: SYNCOPE/NAUSEA History of Present Illness The patient is a 47 year old white female with a past medical history of hysterectomy, cholecystectomy, and ovarian cyst who presents to the ED with a cc of a syncopal episode occurring just prior to arrival. Per , the patient passed out after brushing her teeth this morning. He states the patient sat down before her episode occurred and did not fall or strike her head. He states that she was briefly unresponsive before waking up again. Patient states that she felt lightheaded prior to the episode. No loss of continence, or seizure-like activity. Positive abdominal pain. Negative chest pain, or SOB. Patient was seen in the ED four days ago and was diagnosed with ovarian cyst. Notes that she has not defecated for five days. She has not passed out before in the past. Source of History: patient Onset: Just prior to arrival Quality: other (syncope) Timing: other (episode) Associated Symptoms: + abdominal pain, No chest pain, No SOB Note: Patient states that she felt lightheaded prior to the episode. No loss of continence, or seizure-like activity. Review of Systems See HPI for pertinent positives and negatives. A total of ten systems were reviewed and were otherwise negative. Past Medical & Surgical Medical Problems: (1) Uterine fibroid Family History No pertinent family history stated. Social History Smoking Status: Never Smoker Marital Status: Housing Status: lives with family Occupation Status: employed Current/Historical Medications Scheduled B-Complex Vitamins (B Complex), 1 TAB PO HS Levothyroxine Sodium (Levothyroxine Sodium), 125 MCG PO HS Multivitamin (Multivitamin), 1 TAB PO QPM Nutritional Supplements ([place]), 1 TAB PO HS Psyllium (Metamucil), 1.04 GM PO HS Scheduled PRN Hydrocodone/Acetaminophen 5MG/325MG ([place] 5MG/325MG), 1-2 TABLET PO Q6 PRN for Pain Allergies Coded Allergies: Niacin (Verified Allergy, Unknown, dizziness, 12/03/17) Physical Exam Vital Signs Date Time Temp Pulse Resp B/P (MAP) Pulse Ox O2 Delivery O2 Flow Rate FiO2 12/06/17 23:10 94 16 127/65 98 Oxymask 12/06/17 23:05 99 17 117/62 100 Oxymask 4 12/06/17 22:55 85 17 120/67 100 Oxymask 10 12/06/17 22:48 36.6 88 16 118/69 100 Oxymask 10 12/06/17 20:36 98 20 110/70 97 Room Air 12/06/17 19:16 100 20 110/70 98 Room Air 12/06/17 18:45 98 16 130/76 99 Room Air 12/06/17 18:28 108 12/06/17 18:00 102 22 116/66 98 Room Air 12/06/17 17:30 96 15 120/74 96 12/06/17 17:00 93 18 110/70 96 12/06/17 16:31 118/77 12/06/17 16:30 102 21 94 12/06/17 16:00 100 19 118/73 96 12/06/17 15:30 94 28 120/70 97 12/06/17 15:17 103 16 122/78 96 Room Air 12/06/17 14:30 100 20 132/84 97 Room Air 12/06/17 14:25 104 12/06/17 13:00 84 16 112/66 98 Room Air 12/06/17 12:40 97 15 119/71 97 Room Air 12/06/17 11:30 85 16 108/68 98 Room Air 12/06/17 11:05 82 12 122/68 100 Room Air 12/06/17 10:30 89 12/06/17 09:53 100 Room Air 12/06/17 09:53 36.4 84 18 126/68 100 Room Air Physical Exam GENERAL: Awake, alert, well-appearing, NAD HENT: Normocephalic, atraumatic. EYES: Normal conjunctiva. Sclera non-icteric. NECK: Supple. No nuchal rigidity. FROM. RESPIRATORY: CTAB, no rhonchi, wheezing, crackles CARDIAC: RRR, no MRG ABDOMEN: Soft, NTND, BS+. LLQ TTP. Non-surgical abdomen. PELVIC: No vaginal discharge. No right or central adnexal tenderness. TTP to the left adnexa. MSK: No chest wall TTP, no LE edema NEURO: GCS 15, CN 2-12 intact, moves all 4s on command SKIN: No rash or jaundice noted. Medical Decision & Procedures ER Provider Diagnostic Interpretation: Radiology results as stated below per my review and radiologist interpretation: CT SCAN OF THE ABDOMEN AND PELVIS WITH IV CONTRAST FINDINGS: Lung bases: The heart is normal in size and without pericardial effusion. There are trace pleural effusions with dependent atelectasis. Liver: The contrast-enhanced liver is normal in size, contour, and attenuation. There is no intrahepatic biliary ductal dilatation. The hepatic veins and portal veins are patent. Gallbladder: Surgically absent noting clips in the gallbladder fossa. Spleen: Normal in size and attenuation. Pancreas: Unremarkable. Adrenal glands: Unremarkable. Kidneys: The contrast enhanced kidneys are normal in size and without hydronephrosis. The kidneys enhance symmetrically. Abdominal vasculature: The abdominal aorta is normal in course and caliber. Bowel: There is moderate to severe constipation. No bowel obstruction is seen. The appendix is well-visualized and normal. Peritoneum: Trace perihepatic fluid is identified. There is no intraperitoneal free air. There is a small fat-containing umbilical hernia. Lymphadenopathy: None. Pelvic viscera: The bladder is normal as visualized. The uterus is surgically absent. The left ovary/adnexa is unchanged from 12/03/2017, measuring 6 x 5.5 cm. Numerous follicles are suggested, and there is evidence of hydrosalpinx when correlated with the pelvic ultrasound. An involuting follicle is again noted. There are several right ovarian follicles also identified. Skeletal structures: No lytic or blastic lesions are seen. Mild sclerotic change is seen in the sacroiliac joints. IMPRESSION: 1. The left ovary/adnexa is unchanged in appearance from 12/03/2017. This was shown to represent ovarian follicles and hydrosalpinx on the 12/03/2017 pelvic ultrasound. Given the reported history of leukocytosis pyosalpinx is not excluded. Gynecology assessment is recommended. No abscess is identified in the pelvis. 2. There is a small volume of pelvic free fluid as well as trace perihepatic fluid, unchanged from 12/03/2017. This may be related to a ruptured ovarian follicle/cyst. 3. Moderate to severe constipation. No bowel obstruction is seen. 4. Additional findings as above. Electronically signed by: Yan Hernadez M.D. 12/06/2017 12:20 PM PELVIC COMPLETE NON OB FINDINGS: TRANSABDOMINAL: Left ovary measures 2.8 x 4.0 x 3.5 cm. Transvaginal: Arterial inflow and venous outflow documented within the left ovary which measures 3.4 x 3.2 x 4.5 cm and appears mildly echogenic. Mildly complex left-sided hydrosalpinx is again seen with fallopian tube measuring up to 1.7 cm transversely, unchanged. Mild free pelvic fluid adjacent to the left adnexum is noted. Follicles are seen within the right ovary which overall measures up to 3.7 x 2.9 x 1.5 cm. Decreased size of the previously noted complex 2.5 cm right ovarian lesion, now measuring 1.6 cm suggesting involuting follicle. Arterial inflow is documented within the right ovary. Uterus is surgically absent. IMPRESSION: 1. Mildly complex left-sided hydrosalpinx. Correlate clinically to exclude pyosalpinx. 2. Mildly echogenic appearance of the left ovary with arterial inflow and venous outflow documented. Intermittent torsion/detorsion mechanism is a differential consideration. 3. Decreased size of the previously noted complex 2.5 cm right ovarian lesion, now measuring 1.6 cm suggesting involuting follicle. 4. Mild free pelvic fluid. The above report was generated using voice recognition software. It may contain grammatical, syntax or spelling errors. Electronically signed by: Samuel Hodgson M.D. 12/06/2017 2:05 PM Laboratory Results 12/06/17 09:30 Red Blood Count 4.70, Mean Corpuscular Volume 84.3, Mean Corpuscular Hemoglobin 28.5, Mean Corpuscular Hemoglobin Concent 33.8, Mean Platelet Volume 9.4, Neutrophils (%) (Auto) 63.3, Lymphocytes (%) (Auto) 28.2, Monocytes (%) (Auto) 6.7, Eosinophils (%) (Auto) 1.3, Basophils (%) (Auto) 0.2, Neutrophils # (Auto) 11.05, Lymphocytes # (Auto) 4.94, Monocytes # (Auto) 1.18, Eosinophils # (Auto) 0.22, Basophils # (Auto) 0.04 12/06/17 09:30 Test 12/06/17 09:30 12/06/17 11:00 White Blood Count 17.49 K/uL (4.8-10.8) Red Blood Count 4.70 M/uL (4.2-5.4) Hemoglobin 13.4 g/dL (12.0-16.0) Hematocrit 39.6 % (37-47) Mean Corpuscular Volume 84.3 fL (80-100) Mean Corpuscular Hemoglobin 28.5 pg (25-34) Mean Corpuscular Hemoglobin Concent 33.8 g/dl (32-36) Platelet Count 303 K/uL (130-400) Mean Platelet Volume 9.4 fL (7.4-10.4) Neutrophils (%) (Auto) 63.3 % Lymphocytes (%) (Auto) 28.2 % Monocytes (%) (Auto) 6.7 % Eosinophils (%) (Auto) 1.3 % Basophils (%) (Auto) 0.2 % Neutrophils # (Auto) 11.05 K/uL (1.4-6.5) Lymphocytes # (Auto) 4.94 K/uL (1.2-3.4) Monocytes # (Auto) 1.18 K/uL (0.11-0.59) Eosinophils # (Auto) 0.22 K/uL (0-0.5) Basophils # (Auto) 0.04 K/uL (0-0.2) RDW Standard Deviation 44.3 fL (36.4-46.3) RDW Coefficient of Variation 14.3 % (11.5-14.5) Immature Granulocyte % (Auto) 0.3 % Immature Granulocyte # (Auto) 0.06 K/uL (0.00-0.02) Anion Gap 12.0 mmol/L (3-11) Est Creatinine Clear Calc Drug Dose 107.9 ml/min Estimated GFR () 121.4 Estimated GFR (Non- 104.8 BUN/Creatinine Ratio 26.0 (10-20) Calcium Level 8.7 mg/dl (8.5-10.1) Phosphorus Level 2.4 mg/dl (2.5-4.9) Magnesium Level 2.3 mg/dl (1.8-2.4) Total Bilirubin 0.4 mg/dl (0.2-1) Direct Bilirubin < 0.1 mg/dl (0-0.2) Aspartate Amino Transf (AST/SGOT) 17 U/L (15-37) Alanine Aminotransferase (ALT/SGPT) 38 U/L (12-78) Alkaline Phosphatase 79 U/L (45-117) Troponin I < 0.015 ng/ml (0-0.045) Total Protein 7.4 gm/dl (6.4-8.2) Albumin 3.8 gm/dl (3.4-5.0) Lipase 120 U/L (73-393) Urine Color DK YELLOW Urine Appearance CLEAR (CLEAR) Urine pH 5.5 (4.5-7.5) Urine Specific [place] 1.026 (1.000-1.030) Urine Protein NEG (NEG) Urine Glucose (UA) NEG (NEG) Urine Ketones TRACE (NEG) Urine Occult Blood NEG (NEG) Urine Nitrite NEG (NEG) Urine Bilirubin NEG (NEG) Urine Urobilinogen NEG (NEG) Urine Leukocyte Esterase TRACE (NEG) Urine WBC (Auto) 1-5 /hpf (0-5) Urine RBC (Auto) 0-4 /hpf (0-4) Urine Hyaline Casts (Auto) 1-5 /lpf (0-5) Urine Epithelial Cells (Auto) >30 /lpf (0-5) Urine Bacteria (Auto) NEG (NEG) Laboratory results reviewed by me Medications Administered Medications (Trade) Dose Ordered Sig/Shaun Route Start Time Stop Time Status Last Admin Dose Admin Ketorolac Tromethamine (Toradol Inj) 30 mg NOW STAT IV 12/06/17 10:17 12/06/17 10:19 DC 12/06/17 18:18 30 MG Doxycycline Hyclate 100 mg/ Dextrose 110 ml @ 50 mls/hr ONE STAT IV 12/06/17 14:58 12/06/17 17:09 DC 12/06/17 16:33 50 MLS/HR Metronidazole (Flagyl / Nss) 500 mg NOW STAT IV 12/06/17 14:58 12/06/17 15:01 DC 12/06/17 15:17 500 MG Sodium Chloride 1,000 ml @ 110 mls/hr Q9H6M STAT IV 12/06/17 18:29 12/06/17 23:08 DC 12/06/17 18:46 110 MLS/HR Bupivacaine HCl (Marcaine 0.5% MPF Inj) 30 ml STK-MED ONCE .ROUTE 12/06/17 20:20 12/06/17 20:21 DC 12/06/17 22:37 12 ML Miscellaneous (Tisseel Fibrin Sealant 4ml) 4 ml ONE ONCE TOP 12/06/17 22:23 12/06/17 22:24 DC 12/06/17 22:23 4 ML ECG Indication: syncope Rate (beats per minute): 83 Rhythm: normal sinus Findings: other (Normal intervals. Normal axis. No STS changes or TWI. ) ED Course 1007: The patient was evaluated in room A11B. A complete history and physical exam was performed. 1145: I reassessed the patient. She is still experiencing significant abdominal pain with standing up. We discussed ordering a CT for which she verbalized agreement. 1335: I conducted the pelvic exam on the patient. See the physical exam for pertinent findings. 1451: Upon reexamination, the patient was resting comfortably. I discussed the test results and treatment plan with her. The patient will be evaluated for further management. Medical Decision The patient is a 47 year old white female with a past medical history of hysterectomy, cholecystectomy, and ovarian cyst who presents to the ED with a cc of a syncopal episode occurring just prior to arrival. Differential diagnosis: Etiologies such as vasovagal event, infection, hypoglycemia, electrolyte abnormalities, cardiac sources, intracerebral event, toxicologic, neurologic, as well as others were entertained. Patient was seen and evaluated at the bedside. Patient states that she recently did have a noted ruptured ovarian cyst that was diagnosed with a CT as well as on pelvic ultrasound last week. Patient states she has had some significant pain. Patient states he did have a lot of pain this morning did take some medication to try to help her with this pain. Patient states that while she was brushing her teeth she felt very lightheaded and then slumped to the ground. Patient denies striking her head per the fianc. No witnessed seizure-like activity. Patient denies any tongue biting or incontinence. Patient has a nonfocal neurologic exam and looks very well-appearing. Patient does have discomfort localized to left lower quadrant. Patient does not have a surgical abdomen. Patient has a prior hysterectomy as well as cholecystectomy. Patient states that she's not had a bowel movement since last . Patient has been passing gas. Patient did have blood work completed along with a chest x-ray, EKG. Patient has not had any episodes of syncope in the past. Patient has no family history of unexplained deaths. Patient's blood work did show an elevated white count of 17,000. His more than doubled when she was seen prior to days ago. Given this and the patient's abdominal pain the patient did have a CT of the abdomen pelvis ordered as well as a pelvic ultrasound. Patient's CT the abdomen pelvis did show a hydrosalpinx and given the possibility of possible pyosalpinx. Patient did have a pelvic ultrasound. There was a possibility of either detorsion torsion versus a pyosalpinx. I did perform a pelvic exam and the patient did have some left-sided adnexal tenderness to palpation. Given the patient's white count and tenderness in addition to her imaging findings I did discuss this with the on-call EDGER HAND physician. She agreed that they would see the patient with possibly taking her to the operating room. Patient was made nothing by mouth, type and screen ordered, IV antibiotics, and blood cultures were obtained. Multiple discussions were had with lung gun operator. Concern for ovarian torsion over pyosalpinx at this time. Patient seen by EDGER HAND and the patient was admitted for further evaluation and treatment and taken to the OR. Medication Reconcilliation Current Medication List: was personally reviewed by me Blood Pressure Screening Patient's blood pressure: Normal blood pressure Blood pressure disposition: Did not require urgent referral Consults Time Called: 1448 Consulting Physician: Dr. Livier PABLO Returned Call: 1450 Discussed the patient's case. The patient will be evaluated for further treatment and disposition. Dr. Maier would like a type & screen, blood cultures and for the patient to be NPO. Impression Primary Impression: Ovarian torsion Additional Impressions: Syncope Left lower quadrant pain Critical Care I have personally spent greater than 80 minutes of critical care time in the direct management of this patient. This includes bedside care, interpretation of diagnostic studies, and testing, discussion with consultants, patient, and family members, and other required patient management activities. This 80 minutes is in excess of all separately billable procedures. Scribe Attestation The scribe's documentation has been prepared under my direction and personally reviewed by me in its entirety. I confirm that the note above accurately reflects all work, treatment, procedures, and medical decision making performed by me. Departure Information Dispostion Being Evaluated By Surgeon Referrals Devyn Brownlee M.D. (PCP) Patient Instructions [facility] Problem Qualifiers Additional Impressions: Syncope Syncope type: unspecified Qualified Codes: R55 - Syncope and collapse
[2017-12-06 11:27] LABS: BASO % 0.2 %; BASO ABS # 0.04 K/uL (0-0.2); EOS % 1.3 %; EOS ABS # 0.22 K/uL (0-0.5); HEMATOCRIT 39.6 % (37-47); HEMOGLOBIN 13.4 g/dL (12.0-16.0); IG# 0.06 K/uL (0.00-0.02); LYMPH % 28.2 %; LYMPH ABS # 4.94 K/uL (1.2-3.4); MEAN CELL VOLUME 84.3 fL (80-100); MEAN CORPUSCULAR HEMOGLOBIN 28.5 pg (25-34); MEAN CORPUSCULAR HGB CONC 33.8 g/dl (32-36); MEAN PLATELET VOLUME 9.4 fL (7.4-10.4); MONO % 6.7 %; MONO ABS # 1.18 K/uL (0.11-0.59); NEUT % 63.3 %; NEUT ABS # 11.05 K/uL (1.4-6.5); PLATELET COUNT 303 K/uL (130-400); RED CELL DISTRIBUTION WIDTH CV 14.3 % (11.5-14.5); RED CELL DISTRIBUTION WIDTH SD 44.3 fL (36.4-46.3); WHITE BLOOD COUNT 17.49 K/uL (4.8-10.8)
[2017-12-06 11:34] LABS: ALBUMIN 3.8 gm/dl (3.4-5.0); ALT/SGPT 38 U/L (12-78); BLOOD UREA NITROGEN 17 mg/dl (7-18); CALCIUM 8.7 mg/dl (8.5-10.1); CARBON DIOXIDE 21 mmol/L (21-32); CREATININE 0.64 mg/dl (0.60-1.20); GLUCOSE 116 mg/dl (70-99); LIPASE 120 U/L (73-393); POTASSIUM 3.5 mmol/L (3.5-5.1); SODIUM 136 mmol/L (136-145)
[2017-12-06 11:38] LABS: ALKALINE PHOSPHATASE 79 U/L (45-117); AST/SGOT 17 U/L (15-37); PHOSPHORUS 2.4 mg/dl (2.5-4.9); TOTAL PROTEIN 7.4 gm/dl (6.4-8.2)
[2017-12-06] MEDS ORDERED: OPTIRAY 320 IV PRN (12:00)
--- NOTE | 2017-12-06 12:21 | DIAGNOSTIC IMAGING REPORT ---
CT SCAN OF THE ABDOMEN AND PELVIS WITH IV CONTRAST CLINICAL HISTORY: Left lower quadrant abdominal pain. Leukocytosis. COMPARISON STUDY: Abdominal CT dated 12/03/2017. Pelvic ultrasound dated 12/03/2017. TECHNIQUE: Following the IV administration of 94 cc of Optiray 320, CT scan of the abdomen and pelvis is performed from the lung bases to the proximal femora. Images are reviewed in the axial, sagittal, and coronal planes. IV contrast was administered without complication. A dose lowering technique was utilized adhering to the principles of ALARA. CT DOSE: 409.73 mGy.cm FINDINGS: Lung bases: The heart is normal in size and without pericardial effusion. There are trace pleural effusions with dependent atelectasis. Liver: The contrast-enhanced liver is normal in size, contour, and attenuation. There is no intrahepatic biliary ductal dilatation. The hepatic veins and portal veins are patent. Gallbladder: Surgically absent noting clips in the gallbladder fossa. Spleen: Normal in size and attenuation. Pancreas: Unremarkable. Adrenal glands: Unremarkable. Kidneys: The contrast enhanced kidneys are normal in size and without hydronephrosis. The kidneys enhance symmetrically. Abdominal vasculature: The abdominal aorta is normal in course and caliber. Bowel: There is moderate to severe constipation. No bowel obstruction is seen. The appendix is well-visualized and normal. Peritoneum: Trace perihepatic fluid is identified. There is no intraperitoneal free air. There is a small fat-containing umbilical hernia. Lymphadenopathy: None. Pelvic viscera: The bladder is normal as visualized. The uterus is surgically absent. The left ovary/adnexa is unchanged from 12/03/2017, measuring 6 x 5.5 cm. Numerous follicles are suggested, and there is evidence of hydrosalpinx when correlated with the pelvic ultrasound. An involuting follicle is again noted. There are several right ovarian follicles also identified. Skeletal structures: No lytic or blastic lesions are seen. Mild sclerotic change is seen in the sacroiliac joints. IMPRESSION: 1. The left ovary/adnexa is unchanged in appearance from 12/03/2017. This was shown to represent ovarian follicles and hydrosalpinx on the 12/03/2017 pelvic ultrasound. Given the reported history of leukocytosis pyosalpinx is not excluded. Gynecology assessment is recommended. No abscess is identified in the pelvis. 2. There is a small volume of pelvic free fluid as well as trace perihepatic fluid, unchanged from 12/03/2017. This may be related to a ruptured ovarian follicle/cyst. 3. Moderate to severe constipation. No bowel obstruction is seen. 4. Additional findings as above. Electronically signed by: Yan Hernadez M.D. 12/06/2017 12:20 PM Dictated Date/Time: 12/06/2017 12:14 PM
[2017-12-06] MEDS ORDERED: HYDROmorphone INJ 1 MG/ML SYR IV STA (13:05)
--- NOTE | 2017-12-06 14:06 | DIAGNOSTIC IMAGING REPORT ---
PELVIC COMPLETE NON OB HISTORY: 47 years-old Female LLQ TTP, ?hemorrhagic cyst? Acute left lower quadrant pelvic pain COMPARISON: Pelvic ultrasound 12/03/2017, CT 12/06/2017 TECHNIQUE: Multiple real-time sonographic images of the deep pelvic structures were obtained transabdominally and transvaginally assessing grayscale appearance, color and spectral flow FINDINGS: TRANSABDOMINAL: Left ovary measures 2.8 x 4.0 x 3.5 cm. Transvaginal: Arterial inflow and venous outflow documented within the left ovary which measures 3.4 x 3.2 x 4.5 cm and appears mildly echogenic. Mildly complex left-sided hydrosalpinx is again seen with fallopian tube measuring up to 1.7 cm transversely, unchanged. Mild free pelvic fluid adjacent to the left adnexum is noted. Follicles are seen within the right ovary which overall measures up to 3.7 x 2.9 x 1.5 cm. Decreased size of the previously noted complex 2.5 cm right ovarian lesion, now measuring 1.6 cm suggesting involuting follicle. Arterial inflow is documented within the right ovary. Uterus is surgically absent. IMPRESSION: 1. Mildly complex left-sided hydrosalpinx. Correlate clinically to exclude pyosalpinx. 2. Mildly echogenic appearance of the left ovary with arterial inflow and venous outflow documented. Intermittent torsion/detorsion mechanism is a differential consideration. 3. Decreased size of the previously noted complex 2.5 cm right ovarian lesion, now measuring 1.6 cm suggesting involuting follicle. 4. Mild free pelvic fluid. The above report was generated using voice recognition software. It may contain grammatical, syntax or spelling errors. Electronically signed by: Samuel Hodgson M.D. 12/06/2017 2:05 PM Dictated Date/Time: 12/06/2017 1:56 PM
[2017-12-06] MEDS ORDERED: METRONIDAZOLE 500MG / 100ML NSS IV STA (14:58)
[2017-12-06] MEDS ORDERED: DOXYCYCLINE IV 100 MG in DEXTROSE 5% 100ML 100 ML IV STA (14:58)
[2017-12-06] MEDS ORDERED: KETOROLAC TROMETHAMINE 30 MG/ML VIAL ONE ×2 (18:12→22:24)
[2017-12-06] MEDS ORDERED: SODIUM CHLORIDE 0.9% 1000ML 1,000 ML IV STA (18:29)
--- NOTE | 2017-12-06 19:33 | Medical Consult ---
Consultation Date of Consultation: Dec 06, 2017. Attending Physician: Dr Liang Reason for Consultation: LLQ pain History of Present Illness Patient is a 47yo who presented to the ER with severe LLQ pain, so severe that she had a syncopal episode in the bathroom due to pain. She has a history of robotic-assisted hysterectomy, performed by Dr. Root in May 2017. At the time of surgery, surgical reports indicate normal-appearing fallopian tubes and ovaries however the tubes were significantly adhered to the ovaries and therefore were not removed. Patient had presented on Wednesday to the emergency department with the same pain CT scan showed a small right ovarian cyst and a concern for left hydrosalpinx or pyosalpinx. At the time she was evaluated also for ovarian torsion and determined to not have a torsed her ovary. She was given pain medications and sent home to follow up in the office as an outpatient. The pain continued throughout the weekend, and she contacted the on -call physician on Wednesday night, with similar complaints. She was instructed to continue taking pain medications. Today, she experienced a syncopal episode and presented to the ER. She has had lack of appetite, nausea, 1 episode of vomiting. Has felt a low grade temperature. No problems with urination or bowels. Past Medical/Surgical History Medical Problems: (1) Abdominal pain, acute, left lower quadrant Status: Acute (2) Left lower quadrant pain Status: Acute (3) Pyosalpinx Status: Acute Social History Smoking Status: Never Smoker Marital Status: Housing Status: lives with family Occupation Status: employed Allergies Coded Allergies: Niacin (Verified Allergy, Unknown, dizziness, 12/03/17) Current Inpatient Medications Current Inpatient Medications Medications (Trade) Dose Ordered Sig/Shaun Route Start Time Stop Time Status Last Admin Dose Admin Ioversol (Optiray 320) 125 ml UD PRN IV 12/06/17 12:00 12/10/17 11:59 Sodium Chloride 1,000 ml @ 110 mls/hr [id number] STAT IV 12/06/17 18:29 12/07/17 03:34 12/06/17 18:46 110 MLS/HR Review of Systems Constitutional: + fever, + chills Eyes: No problem reported ENT: No problem reported Respiratory: No problem reported Cardiovascular: No problem reported Abdomen: No problem reported Musculoskeletal: No problem reported Genitourinary - Female: + problem reported (pelvic pain left lower quadrant) Neurologic: + problem reported (syncopal episode, thought to be from pain) Psychiatric: No problem reported Endocrine: No problem reported Hematologic / Lymphatic: No problem reported Integumentary: No problem reported Allergic / Immunologic: No problem reported Physical Exam Date Time Temp Pulse Resp B/P (MAP) Pulse Ox O2 Delivery O2 Flow Rate FiO2 12/06/17 19:16 100 20 110/70 98 Room Air 12/06/17 18:45 98 16 130/76 99 Room Air 12/06/17 18:28 108 12/06/17 18:00 102 22 116/66 98 Room Air 12/06/17 17:30 96 15 120/74 96 12/06/17 17:00 93 18 110/70 96 12/06/17 16:31 118/77 12/06/17 16:30 102 21 94 12/06/17 16:00 100 19 118/73 96 12/06/17 15:30 94 28 120/70 97 12/06/17 15:17 103 16 122/78 96 Room Air 12/06/17 14:30 100 20 132/84 97 Room Air 12/06/17 14:25 104 12/06/17 13:00 84 16 112/66 98 Room Air 12/06/17 12:40 97 15 119/71 97 Room Air 12/06/17 11:30 85 16 108/68 98 Room Air 12/06/17 11:05 82 12 122/68 100 Room Air 12/06/17 10:30 89 12/06/17 09:53 100 Room Air 12/06/17 09:53 36.4 84 18 126/68 100 Room Air General Appearance: WD/WN, + moderate distress Head: normocephalic, atraumatic Respiratory/Chest: no respiratory distress Cardiovascular: regular rate, rhythm Abdomen/GI: soft, no organomegaly, + tenderness (left lower quadrant), + pertinent finding (abdomen is hot to touch) Genitourinary - Female: + pertinent finding (patient declined pelvic exam as the ER head already performed) Extremities/Musculoskelatal: no pedal edema Neurologic/Psych: no motor/sensory deficits, alert, normal mood/affect, oriented x 3 Laboratory Results Last 24 Hours Test 12/06/17 09:30 12/06/17 11:00 White Blood Count 17.49 K/uL Red Blood Count 4.70 M/uL Hemoglobin 13.4 g/dL Hematocrit 39.6 % Mean Corpuscular Volume 84.3 fL Mean Corpuscular Hemoglobin 28.5 pg Mean Corpuscular Hemoglobin Concent 33.8 g/dl Platelet Count 303 K/uL Mean Platelet Volume 9.4 fL Neutrophils (%) (Auto) 63.3 % Lymphocytes (%) (Auto) 28.2 % Monocytes (%) (Auto) 6.7 % Eosinophils (%) (Auto) 1.3 % Basophils (%) (Auto) 0.2 % Neutrophils # (Auto) 11.05 K/uL Lymphocytes # (Auto) 4.94 K/uL Monocytes # (Auto) 1.18 K/uL Eosinophils # (Auto) 0.22 K/uL Basophils # (Auto) 0.04 K/uL RDW Standard Deviation 44.3 fL RDW Coefficient of Variation 14.3 % Immature Granulocyte % (Auto) 0.3 % Immature Granulocyte # (Auto) 0.06 K/uL Sodium Level 136 mmol/L Potassium Level 3.5 mmol/L Chloride Level 103 mmol/L Carbon Dioxide Level 21 mmol/L Anion Gap 12.0 mmol/L Blood Urea Nitrogen 17 mg/dl Creatinine 0.64 mg/dl Est Creatinine Clear Calc Drug Dose 107.9 ml/min Estimated GFR () 121.4 Estimated GFR (Non- 104.8 BUN/Creatinine Ratio 26.0 Random Glucose 116 mg/dl Calcium Level 8.7 mg/dl Phosphorus Level 2.4 mg/dl Magnesium Level 2.3 mg/dl Total Bilirubin 0.4 mg/dl Direct Bilirubin < 0.1 mg/dl Aspartate Amino Transf (AST/SGOT) 17 U/L Alanine Aminotransferase (ALT/SGPT) 38 U/L Alkaline Phosphatase 79 U/L Troponin I < 0.015 ng/ml Total Protein 7.4 gm/dl Albumin 3.8 gm/dl Lipase 120 U/L Urine Color DK YELLOW Urine Appearance CLEAR Urine pH 5.5 Urine Specific [place] 1.026 Urine Protein NEG Urine Glucose (UA) NEG Urine Ketones TRACE Urine Occult Blood NEG Urine Nitrite NEG Urine Bilirubin NEG Urine Urobilinogen NEG Urine Leukocyte Esterase TRACE Urine WBC (Auto) 1-5 /hpf Urine RBC (Auto) 0-4 /hpf Urine Hyaline Casts (Auto) 1-5 /lpf Urine Epithelial Cells (Auto) >30 /lpf Urine Bacteria (Auto) NEG Assessment & Plan Assessment: left lower quadrant mass with concern for ovarian torsion versus necrotic ovary versus hematosalpinx. Plan: Will recommend emergent surgery due to concern for necrosis of ovarian tissue. While the patient's ultrasound shows arterial and venous flow to the left ovary, I am concerned that this could be an intermittent torsion. The patient is agreeable for surgery, and informed consent was obtained in the emergency department. I discussed risks of damage to surrounding tissues, risk of bleeding, scarring, infection, pain. Also discussed the possibility of conversion from laparoscopic to open procedure. Will plan to go to the operating room as soon as possible.
--- NOTE | 2017-12-06 19:37 | History and Physical ---
History & Physical Date Dec 06, 2017. Chief Complaint Severe LLQ pain History of Present Illness Patient is a 47yo who presented to the ER with severe LLQ pain, so severe that she had a syncopal episode in the bathroom due to pain. She has a history of robotic-assisted hysterectomy, performed by Dr. Root in May 2017. At the time of surgery, surgical reports indicate normal-appearing fallopian tubes and ovaries however the tubes were significantly adhered to the ovaries and therefore were not removed. Patient had presented on Wednesday to the emergency department with the same pain CT scan showed a small right ovarian cyst and a concern for left hydrosalpinx or pyosalpinx. At the time she was evaluated also for ovarian torsion and determined to not have a torsed her ovary. She was given pain medications and sent home to follow up in the office as an outpatient. The pain continued throughout the weekend, and she contacted the on -call physician on Wednesday night, with similar complaints. She was instructed to continue taking pain medications. Today, she experienced a syncopal episode and presented to the ER. She has had lack of appetite, nausea, 1 episode of vomiting. Has felt a low grade temperature. No problems with urination or bowels. Past Medical/Surgical History Medical Problems: (1) Uterine fibroid Surgical History: Hysterectomy - robotic, ovarian/tubal preservation Cholecystectomy Additional History Hepatic Disease: No Endocrine Disorder: Yes (hypothyroidism) Kidney Disease: No Hypertension: No Heart Disease: No Bleeding Tendencies: No Infectious Diseases: No LMP: hysterectomy Allergies Coded Allergies: Niacin (Verified Allergy, Unknown, dizziness, 12/03/17) Home Medications Scheduled B-Complex Vitamins (B Complex), 1 TAB PO HS Levothyroxine Sodium (Levothyroxine Sodium), 125 MCG PO HS Multivitamin (Multivitamin), 1 TAB PO QPM Nutritional Supplements (Estroven), 1 TAB PO HS Psyllium (Metamucil), 1.04 GM PO HS Scheduled PRN Hydrocodone/Acetaminophen 5MG/325MG ([place] 5MG/325MG), 1-2 TABLET PO Q6 PRN for Pain Physical Examination Skin: warm/dry Eyes: normal inspection Head: normocephalic Respiratory/Chest: no respiratory distress Cardiovascular: regular rate, rhythm Abdomen / GI: + pertinent finding (LLQ tenderness) Extremities: normal inspection Neurologic/Psych: alert, oriented x 3 Diagnosis LLQ pain Plan of Treatment Will proceed to OR for emergent laparoscopy, plan for removal of left ovary/ fallopian tube. Possible need for laparotomy.
[2017-12-06] MEDS ORDERED: BUPIVACAINE 0.5 % 5 MG/1 ML MPF 30ML VIAL ONE (20:20)
[2017-12-06] MEDS ORDERED: LACTATED RINGER'S 1000ML 1,000 ML IV SCH (20:24)
[2017-12-06] MEDS ORDERED: MIDAZOLAM HCL 1 MG/ML 2ML VIAL ONE (20:54)
[2017-12-06] MEDS ORDERED: FENTANYL CITRATE INJ 50 MCG/1 ML 2 ML VIAL ONE ×2 (20:54→22:17)
[2017-12-06] MEDS ORDERED: ONDANSETRON INJ 2 MG/ML 2 ML VIAL ONE (21:00)
[2017-12-06] MEDS ORDERED: MEPERIDINE HCL 25 MG/ML CARP IV PRN (21:00)
[2017-12-06] MEDS ORDERED: LABETALOL HCL IV 5 MG/ML 20ML IV PRN (21:00)
[2017-12-06] MEDS ORDERED: EpHEDrine SULFATE INJ 50 MG/ML AMP IV PRN (21:00)
[2017-12-06] MEDS ORDERED: ATROPINE SULFATE 0.1 MG/ML 5ML SYR IV PRN (21:00)
[2017-12-06] MEDS ORDERED: FLUMAZENIL 0.1 MG/1 ML 10 ML VIAL IV PRN (21:00)
[2017-12-06] MEDS ORDERED: CEFAZOLIN SOD 1 GM VIAL ONE (21:00)
[2017-12-06] MEDS ORDERED: HYDROmorphone INJ 2 MG/ML SYR/VIAL IV PRN (21:00)
[2017-12-06] MEDS ORDERED: DEXAMETHASONE SOD INJ 4 MG/ML VIAL ONE ×2 (21:00→21:01)
[2017-12-06] MEDS ORDERED: GLYCOPYRROLATE INJ 0.2 MG/ML VIAL ONE (21:00)
[2017-12-06] MEDS ORDERED: PROPOFOL IV EMULSION 10 MG/ML 20 ML VIAL IV ONE (21:00)
[2017-12-06] MEDS ORDERED: FENTANYL CITRATE INJ 50 MCG/1 ML 2 ML VIAL IV PRN (21:00)
[2017-12-06] MEDS ORDERED: ONDANSETRON INJ 2 MG/ML 2 ML VIAL IV PRN ×2 (21:00→23:00)
[2017-12-06] MEDS ORDERED: NEOSTIGMINE METHYLSULFATE 5 MG/5 ML SYR ONE (21:00)
[2017-12-06] MEDS ORDERED: PHENYLEPHRINE 100MCG/ML 5ML SYR IV PRN (21:00)
[2017-12-06] MEDS ORDERED: NALOXONE HCL 0.4 MG/1 ML VIAL/CARP IV PRN (21:00)
[2017-12-06] MEDS ORDERED: LIDOCAINE HCL 2% 2 ML VIAL (20MG/ML) ONE (21:01)
[2017-12-06] MEDS ORDERED: ROCURONIUM BROMIDE 10 MG/ML 5 ML VIAL IV ONE (21:22)
[2017-12-06] MEDS ORDERED: ESMOLOL HCL 10 MG/ML 10 ML VIAL ONE (22:18)
[2017-12-06] MEDS ORDERED: TISSEEL FIBRIN SEALANT 4ML TOP ONE (22:23)
--- NOTE | 2017-12-06 22:41 | [facility] Post Operative Brief Note ---
Immediate Operative Summary Operative Date Dec 06, 2017. Pre-Operative Diagnosis Left lower quadrant pain with left lower quadrant mass Post-Operative Diagnosis Left lower quadrant pain with left lower quadrant mass Procedure(s) Performed Laparoscopic Left Salpingo-oophorectomy Surgeon Dr. Root Drop Forge Operator Surgeon(s) Dr. Garcia Estimated Blood Loss 25cc Findings Left ovarian torsion with reactive edema of left fallopian tube. Right tube/ ovary wnl. Specimens A. Left tube and ovary Drains villanueva, clear yellow, removed at conclusion of case. Anesthesia general Complication(s) None Disposition Recovery Room / PACU
[2017-12-06] MEDS ORDERED: BISACODYL 10 MG SUPP PR PRN (23:00)
[2017-12-06] MEDS ORDERED: MAGNESIUM HYDROXIDE SUSP 30 ML UDC PO PRN (23:00)
[2017-12-06] MEDS ORDERED: IBUPROFEN 600 MG TAB PO PRN (23:00)
[2017-12-06] MEDS ORDERED: PROMETHAZINE HCL INJ 12.5 MG in SODIUM CHLORIDE 0.9% 50ML 50 ML IV PRN (23:00)
[2017-12-06] MEDS ORDERED: SIMETHICONE 80 MG CHEW PO PRN (23:00)
[2017-12-06] MEDS ORDERED: KETOROLAC TROMETHAMINE 30 MG/ML VIAL IV. PRN (23:00)
[2017-12-06] MEDS ORDERED: OXYCODONE/ACETAMINOPHEN 5-325 TAB PO PRN ×2 (23:00)
--- NOTE | 2017-12-06 23:08 | Anesthesiology Progress Note ---
Anesthesia Post Op Note Date & Time Dec 06, 2017 at 23:08 Vital Signs Pain Intensity: 0 Vital Signs Past 12 Hours Date Time Temp Pulse Resp B/P (MAP) Pulse Ox O2 Delivery O2 Flow Rate FiO2 12/06/17 23:05 99 17 117/62 100 Oxymask 4 12/06/17 22:55 85 17 120/67 100 Oxymask 10 12/06/17 22:48 36.6 88 16 118/69 100 Oxymask 10 12/06/17 20:36 98 20 110/70 97 Room Air 12/06/17 19:16 100 20 110/70 98 Room Air 12/06/17 18:45 98 16 130/76 99 Room Air 12/06/17 18:28 108 12/06/17 18:00 102 22 116/66 98 Room Air 12/06/17 17:30 96 15 120/74 96 12/06/17 17:00 93 18 110/70 96 12/06/17 16:31 118/77 12/06/17 16:30 102 21 94 12/06/17 16:00 100 19 118/73 96 12/06/17 15:30 94 28 120/70 97 12/06/17 15:17 103 16 122/78 96 Room Air 12/06/17 14:30 100 20 132/84 97 Room Air 12/06/17 14:25 104 12/06/17 13:00 84 16 112/66 98 Room Air 12/06/17 12:40 97 15 119/71 97 Room Air 12/06/17 11:30 85 16 108/68 98 Room Air Notes Mental Status: alert / awake / arousable, participated in evaluation Pt Amnestic to Procedure: Yes Nausea / Vomiting: adequately controlled Pain: adequately controlled Airway Patency, RR, SpO2: stable & adequate BP & HR: stable & adequate Hydration State: stable & adequate Anesthetic Complications: no major complications apparent
[2017-12-06 23:30] VITALS: BP 113/64; PULSE 99; TEMP 36.6; O2SAT 94
[2017-12-07] VITALS (7 sets, daily range): BP systolic 97–116; BP diastolic 57–67; PULSE 93–120; TEMP 36.5–36.9; O2SAT 96–97; Ht 162.6 cm; Wt 75.6 kg
[2017-12-07] MEDS ORDERED: LACTATED RINGER'S 1000ML 1,000 ML IV SCH
--- NOTE | 2017-12-07 00:14 | OPERATIVE REPORT ---
DATE OF OPERATION: 12/06/2017 PREOPERATIVE DIAGNOSIS: Left lower quadrant pain with left lower quadrant mass. POSTOPERATIVE DIAGNOSIS: Same plus left ovarian torsion. PROCEDURE PERFORMED: Laparoscopic left salpingo-oophorectomy. SURGEON: Karen Root DO. ALGORITHM DESIGN ENGINEER: Trish Garcia MD. ESTIMATED BLOOD LOSS: 25 mL. FINDINGS: Left ovarian torsion with reactive edema of left fallopian tube. Right fallopian tube and ovary are normal. SPECIMENS: Left tube and ovary. DRAINS: Mace, clear yellow removed at conclusion of case. ANESTHESIA: General. COMPLICATIONS: None. DISPOSITION: Stable and good to recovery area. INDICATIONS FOR PROCEDURE: The patient is a 47-year-old status post hysterectomy 7 months ago performed robotically with preservation of tubes and ovaries, who presented to the Emergency Department with 3 days of severe left lower quadrant pain while her ultrasound showed arterial and venous blood flow to the left ovary and it appeared to have a fluid filled tube with complex fluid. I was concerned about intermittent ovarian torsion, so she was taken to the operating room from the Emergency Department for emergency surgery. DESCRIPTION OF PROCEDURE: The patient was seen in the Emergency Department were indications for surgery were discussed, risks, alternatives and benefits were reviewed. She elected to proceed with surgery. Informed consent was obtained under no duress. She was taken to the operating room where 2 grams of Ancef was administered. General anesthesia was administered. A timeout was performed. The patient was prepared and draped in the usual sterile fashion in the supine position. An infraumbilical 10 mm trocar was placed using the open Keren technique under direct visualization. Once the camera confirmed intra-abdominal placement, the abdomen was insufflated with CO2 gas to 15 mmHg. The camera was used to view the pelvis. The patient was placed in steep Trendelenburg position and bilateral lateral 5 mm trocar sites were placed. The bowel was swept out of the way and the pelvis was visualized and the left fallopian tube and ovary were noted to be purple in color and torsed 3 times on the IP ligament. First the mass was untorsed and using the Harmonic scalpel, the IP ligament was coagulated and transected. The ovary and tube were then collected in an EndoCatch bag and brought to the infraumbilical incision. The incision was extended laterally slightly to allow for removal of the contents of the EndoCatch bag. This was passed off to be sent to pathology for further evaluation. Tisseel anticoagulant agent was used to provide additional assurance of hemostasis at the transected IP ligament site. The pelvis was viewed. Excellent hemostasis was observed and all trocars were removed. The fascial incision at the infraumbilical site was reapproximated using 0 Vicryl in a running stitch. All incisions were reapproximated using 4-0 Monocryl in a subcuticular stitch. Dermabond glue was applied. The patient was awoken from anesthesia and taken to the recovery area in stable and good condition. All sponge, instrument and needle counts were correct x2 at the conclusion of the case. I attest to the content of the Intraoperative Record and any orders documented therein. Any exception s are noted below.
[2017-12-07] MEDS ORDERED: IV FLUIDS COMPLETED PRN (00:45)
[2017-12-07] MEDS ORDERED: CEFAZOLIN IV 2,000 MG in DEXTROSE 5% 50ML 50 ML IV SCH (06:00)
[2017-12-07 06:43] LABS: HEMOGLOBIN 11.6 g/dL (12.0-16.0); IG# 0.03 K/uL (0.00-0.02); LYMPH % 8.9 %; MEAN CELL VOLUME 83.7 fL (80-100); MEAN CORPUSCULAR HEMOGLOBIN 28.6 pg (25-34); MEAN CORPUSCULAR HGB CONC 34.1 g/dl (32-36); MEAN PLATELET VOLUME 8.8 fL (7.4-10.4); MONO % 2.1 %; MONO ABS # 0.23 K/uL (0.11-0.59); NEUT % 88.7 %; NEUT ABS # 9.94 K/uL (1.4-6.5); PLATELET COUNT 251 K/uL (130-400); RED CELL DISTRIBUTION WIDTH CV 14.5 % (11.5-14.5); RED CELL DISTRIBUTION WIDTH SD 44.1 fL (36.4-46.3)
[2017-12-07 07:13] LABS: CALCIUM 8.4 mg/dl (8.5-10.1); CREATININE 0.68 mg/dl (0.60-1.20); POTASSIUM 4.2 mmol/L (3.5-5.1)
[2017-12-07] MEDS ORDERED: OXYC-57 PO (07:46)
--- NOTE | 2017-12-07 07:49 | Discharge Instructions ---
Discharge Instructions Date of Service Dec 07, 2017. Visit Reason for Visit: Left Lower Quadrant Pain Discharge Discharge Diagnosis / Problem: ovarian torsion Discharge Goals Goal(s): Therapeutic intervention Activity Recommendations Activity Limitations: per Instructions/Follow-up section Anesthesia . Post Anesthesia Instructions: If you have had General Anesthesia or IV Sedation: * Do not drive today. * Resume driving when surgeon permits. * Do not make important decisions or sign legal documents today. * Call surgeon for: 1. Temperature elevations greater than 101 degrees F. 2. Uncontrollable pain. 3. Excessive bleeding. 4. Persistent nausea and vomiting. 5. Medication intolerance (nausea, vomiting or rash). * For nausea and vomiting use only clear liquids such as: tea, soda, bouillon until nausea subsides, then gradually increase diet as tolerated. * If you have any concerns or questions, call your surgeon's office. If physician is unavailable and it is an emergency, call 911 or go to the nearest emergency room. . Instructions / Follow-Up Instructions / Follow-Up ACTIVITY RECOMMENDATIONS: * Rest the first 2-3 days. You should be back to your normal activity levels by day 3. * No heavy lifting for 2 weeks. * No intercourse, tampons or douching for 1-2 weeks. * You may shower the next day. * Do not drive anytime that you are taking narcotic pain medicines. RETURN TO SCHOOL/WORK: * May return to school or work after 1-2 weeks. DIET: Nausea may occur in the immediate post-operative period. If so, take clear liquids such as tea, bouillon, apple juice until all nausea has subsided, then resume usual diet. MEDICATIONS: Resume previous medications unless instructed otherwise by your surgeon. Ibuprofen 200mg 2-3 tablets every 4-6 hours as needed -- OR -- Aleve 2 tablets every 8-12 hours as needed for post-operative discomfort Medications are over the counter. Tylenol may be used if above medications are contraindicated or not preferred. Medication should be taken with food or milk. Do not take on an empty stomach. SPECIAL CARE INSTRUCTIONS: * Check temperature twice daily for one week. report any elevation over 101 degrees. * You may experience some vagina spotting and/or bleeding. This is normal for 1 -2 weeks and should not be heavier than a normal period. If it is unusual in amount, call your physician. * Post-operative discomfort may consist of a sore throat, a "bloated" feeling and pain in the shoulders. these are normal symptoms, which usually only last for 2-3 days. FOLLOW UP VISIT: Call your doctor's office for a post-operative 2 week visit if not already scheduled. Diet Recommendations Recommended Home Diet: resume previous diet Procedures Procedures Performed: Laparoscopic Left Salpingo-oophorectomy Pending Studies Studies pending at discharge: yes List of pending studies: pathology Medical Emergencies . Who to Call and When: Medical Emergencies: If at any time you feel your situation is an emergency, please call 911 immediately. . Non-Emergent Contact Non-Emergency issues call your: Primary Care Provider, [employer]idential [employer] . . "Provider Documentation" section prepared by Karen Root. . [place] Drug Monitoring Program Search Results: patient reviewed within database
[2017-12-07] MEDS ORDERED: DOCUSATE SODIUM 100 MG CAP PO SCH (09:00)
--- NOTE | 2017-12-07 09:02 | OB/GYN Progress Note ---
FICTION AND NONFICTION WRITER PROSE Progress Note Date of Service Dec 07, 2017. Subjective conversation w/ patient, physical exam Ambulation: ambulating normally Voiding: no voiding problems Passing Gas: Yes Diet Tolerance: Regular Diet Pain: controlled Review of Systems Constitutional: No problem reported Respiratory: No problem reported Cardiac: No problem reported Breast: No problem reported Abdomen: No problem reported Female : No problem reported Objective Vital Signs Date Time Temp Pulse Resp B/P (MAP) Pulse Ox O2 Delivery O2 Flow Rate FiO2 12/07/17 04:30 36.5 118 18 111/61 (78) 97 Room Air 12/07/17 02:30 36.8 107 16 97/57 (70) 96 Room Air 12/07/17 01:40 36.9 120 16 116/64 (81) 97 Room Air 12/07/17 01:00 Room Air 12/07/17 00:30 36.9 101 16 109/64 (79) 96 Room Air 12/07/17 00:00 36.5 100 16 114/67 (83) 96 Room Air 12/06/17 23:30 36.6 99 18 113/64 (80) 94 Room Air 12/06/17 23:30 Room Air 12/06/17 23:30 94 Room Air 12/06/17 23:20 94 17 131/64 97 Room Air 12/06/17 23:10 94 16 127/65 98 Oxymask 12/06/17 23:05 99 17 117/62 100 Oxymask 4 12/06/17 22:55 85 17 120/67 100 Oxymask 10 12/06/17 22:48 36.6 88 16 118/69 100 Oxymask 10 12/06/17 20:36 98 20 110/70 97 Room Air 12/06/17 19:16 100 20 110/70 98 Room Air 12/06/17 18:45 98 16 130/76 99 Room Air 12/06/17 18:28 108 12/06/17 18:00 102 22 116/66 98 Room Air 12/06/17 17:30 96 15 120/74 96 12/06/17 17:00 93 18 110/70 96 12/06/17 16:31 118/77 12/06/17 16:30 102 21 94 12/06/17 16:00 100 19 118/73 96 12/06/17 15:30 94 28 120/70 97 12/06/17 15:17 103 16 122/78 96 Room Air 12/06/17 14:30 100 20 132/84 97 Room Air 12/06/17 14:25 104 12/06/17 13:00 84 16 112/66 98 Room Air 12/06/17 12:40 97 15 119/71 97 Room Air 12/06/17 11:30 85 16 108/68 98 Room Air 12/06/17 11:05 82 12 122/68 100 Room Air 12/06/17 10:30 89 12/06/17 09:53 100 Room Air 12/06/17 09:53 36.4 84 18 126/68 100 Room Air Physical Exam General Appearance: WELL-APPEARING, NO APPARENT DISTRESS Respiratory/Chest: no respiratory distress Cardiovascular: regular rate, rhythm Abdomen: non tender, soft Incision Description: Clean, Dry & Intact Extremities: normal inspection Laboratory Results Last 24 Hours Test 12/06/17 09:30 12/06/17 11:00 12/07/17 06:23 White Blood Count 17.49 K/uL 11.20 K/uL Red Blood Count 4.70 M/uL 4.06 M/uL Hemoglobin 13.4 g/dL 11.6 g/dL Hematocrit 39.6 % 34.0 % Mean Corpuscular Volume 84.3 fL 83.7 fL Mean Corpuscular Hemoglobin 28.5 pg 28.6 pg Mean Corpuscular Hemoglobin Concent 33.8 g/dl 34.1 g/dl Platelet Count 303 K/uL 251 K/uL Mean Platelet Volume 9.4 fL 8.8 fL Neutrophils (%) (Auto) 63.3 % 88.7 % Lymphocytes (%) (Auto) 28.2 % 8.9 % Monocytes (%) (Auto) 6.7 % 2.1 % Eosinophils (%) (Auto) 1.3 % 0.0 % Basophils (%) (Auto) 0.2 % 0.0 % Neutrophils # (Auto) 11.05 K/uL 9.94 K/uL Lymphocytes # (Auto) 4.94 K/uL 1.00 K/uL Monocytes # (Auto) 1.18 K/uL 0.23 K/uL Eosinophils # (Auto) 0.22 K/uL 0.00 K/uL Basophils # (Auto) 0.04 K/uL 0.00 K/uL RDW Standard Deviation 44.3 fL 44.1 fL RDW Coefficient of Variation 14.3 % 14.5 % Immature Granulocyte % (Auto) 0.3 % 0.3 % Immature Granulocyte # (Auto) 0.06 K/uL 0.03 K/uL Sodium Level 136 mmol/L 138 mmol/L Potassium Level 3.5 mmol/L 4.2 mmol/L Chloride Level 103 mmol/L 106 mmol/L Carbon Dioxide Level 21 mmol/L 25 mmol/L Anion Gap 12.0 mmol/L 7.0 mmol/L Blood Urea Nitrogen 17 mg/dl 11 mg/dl Creatinine 0.64 mg/dl 0.68 mg/dl Est Creatinine Clear Calc Drug Dose 107.9 ml/min 99.7 ml/min Estimated GFR () 121.4 119.0 Estimated GFR (Non- 104.8 102.7 BUN/Creatinine Ratio 26.0 16.6 Random Glucose 116 mg/dl 126 mg/dl Calcium Level 8.7 mg/dl 8.4 mg/dl Phosphorus Level 2.4 mg/dl Magnesium Level 2.3 mg/dl Total Bilirubin 0.4 mg/dl Direct Bilirubin < 0.1 mg/dl Aspartate Amino Transf (AST/SGOT) 17 U/L Alanine Aminotransferase (ALT/SGPT) 38 U/L Alkaline Phosphatase 79 U/L Troponin I < 0.015 ng/ml Total Protein 7.4 gm/dl Albumin 3.8 gm/dl Lipase 120 U/L Urine Color DK YELLOW Urine Appearance CLEAR Urine pH 5.5 Urine Specific [place] 1.026 Urine Protein NEG Urine Glucose (UA) NEG Urine Ketones TRACE Urine Occult Blood NEG Urine Nitrite NEG Urine Bilirubin NEG Urine Urobilinogen NEG Urine Leukocyte Esterase TRACE Urine WBC (Auto) 1-5 /hpf Urine RBC (Auto) 0-4 /hpf Urine Hyaline Casts (Auto) 1-5 /lpf Urine Epithelial Cells (Auto) >30 /lpf Urine Bacteria (Auto) NEG Assessment and Plan Post-Op Day Number: 1 Continue Routine Care: POD#1 s/p left salpingoophorectomy. Doing well. Discharge instructions discussed.
[2017-12-07] MEDS ORDERED: IBUPROFEN 600 MG TAB PO PRN (09:15)
== END 2017-12-07 10:50 | disposition home or self-care (01) ==
LOC: EDBD 09:47 → C.EDA 09:48 → C.MS4N 23:02
PROVIDERS: ADMIT Obstetrics & Gynecology; ATTEND Obstetrics & Gynecology
DX: N83.512 Torsion of left ovary and ovarian pedicle (principal); N83.202 Unspecified ovarian cyst, left side; R55 Syncope and collapse; E03.9 Hypothyroidism, unspecified; K58.9 Irritable bowel syndrome, unspecified; Z90.710 Acquired absence of both cervix and uterus; Z90.49 Acquired absence of other specified parts of digestive tract

== ENCOUNTER → 2018-06-15 | Outpatient (CLI) | payer OTHER ==
[~2018-06-15] MED LIST changes: -HYDR-5688 PO
[2018-06-15 13:04] LABS: HEMATOCRIT 40.3 % (37-47); HEMOGLOBIN 13.2 g/dL (12.0-16.0); MEAN CELL VOLUME 84.3 fL (80-100); MEAN CORPUSCULAR HEMOGLOBIN 27.6 pg (25-34); MEAN CORPUSCULAR HGB CONC 32.8 g/dl (32-36); MEAN PLATELET VOLUME 9.7 fL (7.4-10.4); PLATELET COUNT 275 K/uL (130-400); RED CELL DISTRIBUTION WIDTH SD 43.1 fL (36.4-46.3); WHITE BLOOD COUNT 5.93 K/uL (4.8-10.8)
[2018-06-15 13:35] LABS: BLOOD UREA NITROGEN 16 mg/dl (7-18); CALCIUM 8.9 mg/dl (8.5-10.1); CARBON DIOXIDE 28 mmol/L (21-32); CHOLESTEROL 208 mg/dl (0-200); CREATININE 0.69 mg/dl (0.60-1.20); GLUCOSE 85 mg/dl (70-99); LDL CHOLESTEROL CALCULATED 119 mg/dl; POTASSIUM 4.1 mmol/L (3.5-5.1); SODIUM 139 mmol/L (136-145)
== END | disposition home or self-care (01) ==
LOC: C.LABBC 08:01
PROVIDERS: ATTEND Internal Medicine
DX: E78.00 Pure hypercholesterolemia, unspecified (principal); E03.9 Hypothyroidism, unspecified; D50.9 Iron deficiency anemia, unspecified; E78.1 Pure hyperglyceridemia